=== PATIENT | female | born 1960 | race Two or more races ===

== ENCOUNTER 2017-03-28 20:05 | Emergency (ER) | payer OTHER ==
[~2017-03-28] VITALS: Ht 152.4 cm; Wt 81.6 kg
[~2017-03-28 20:05] MED LIST: ALBUAER3 IN; AMOX500C2; CAR3125T; OMEP20CA74 PO; WARF2TAB49 PO
[2017-03-28 20:18] VITALS: BP 104/71
== END 2017-03-29 03:20 | disposition left against medical advice (07) ==
LOC: EDBD → ER 20:16
DX: R07.89 Other chest pain (principal); Z53.21 Procedure and treatment not carried out due to patient leaving prior to being seen by health care provider
CPT/HCPCS: 71010; 93005

== ENCOUNTER 2019-07-22 10:42 | Emergency (ER) | payer MEDICAID ==
[~2019-07-22] VITALS: Ht 152.4 cm; Wt 63.5 kg
[~2019-07-22 10:42] MED LIST changes: -AMOX500C2; +CARV3.1240 PO; +DOXE50CA57 PO; +HYDR12.55 PO; +LEV25T PO; +METF-370 PO; +WARF1TAB36 PO
[2019-07-22 11:34] LABS: Urine Bacteria NONE SEEN /hpf (None Seen); Urine Blood Negative /uL (Negative); Urine Specific Gravity 1.007 (1.001-1.035); Urine WBC 4 /hpf (0 - 5)
[2019-07-22 14:50] VITALS: BP 133/84
== END 2019-07-22 15:03 | disposition home or self-care (01) ==
LOC: ER 10:42
DX: J44.9 Chronic obstructive pulmonary disease, unspecified (principal); I11.0 Hypertensive heart disease with heart failure; I50.9 Heart failure, unspecified; E11.9 Type 2 diabetes mellitus without complications; E78.5 Hyperlipidemia, unspecified; Z45.2 Encounter for adjustment and management of vascular access device; Z86.73 Personal history of transient ischemic attack (TIA), and cerebral infarction without residual deficits; Z90.49 Acquired absence of other specified parts of digestive tract; Z98.51 Tubal ligation status; Z90.710 Acquired absence of both cervix and uterus; Z79.899 Other long term (current) drug therapy
CPT/HCPCS: 81001

== ENCOUNTER 2019-08-14 09:54 | Inpatient (IN) | payer MEDICAID ==
[2019-08-14] VITALS (47 sets, daily range): BP systolic 84–131; BP diastolic 37–82
[~2019-08-14] VITALS: Ht 152.4 cm; Wt 70.7 kg
[2019-08-14] MEDS ORDERED: ALBUTEROL SULF 2.5 MG/0.5ML(0.5%) NEB SOLN NEB ONE (10:15)
[2019-08-14] MEDS ORDERED: IPRATROPIUM BROM 0.5 MG/2.5ML INH SOL NEB ONE ×2 (10:15)
[2019-08-14] MEDS ORDERED: ALBUTEROL SULF 2.5 MG/0.5ML(0.5%) NEB SOLN ONE (10:17)
[2019-08-14] MEDS ORDERED: ETOMIDATE (2MG/ML) 20ML VIAL IV ONE ×2 (10:30→11:00)
[2019-08-14] MEDS ORDERED: SUCCINYLCHOLINE CHLORIDE 20 MG/ML 10ML VIAL IV ONE ×2 (10:31→11:00)
[2019-08-14] MEDS ORDERED: MIDAZOLAM DRIP 50 mg/50mL 50 ML IV ONE (10:32)
[2019-08-14 10:43] LABS: Basophils # (auto) 0 10 ^3/uL (0-0.2); Basophils % (auto) 0.2 % (0.0-2.0); Eosinophils # (auto) 0.2 10 ^3/uL (0-0.8); Eosinophils % (auto) 1.1 % (0.0-7.0); Hematocrit 44.2 % (36.0-46.0); Hemoglobin 14.7 g/dL (12.2-16.2); Lymphocytes # (auto) 1.2 10 ^3/uL (0.4-5.4); Lymphocytes % (auto) 5.9 % (10.0-50.0); Mean Corpuscular Hgb Conc. 33.3 g/dL (32.0-36.0); Mean Corpuscular Volume 90.3 fL (80.0-100.0); Monocytes # (auto) 1.2 10 ^3/uL (0-1.3); Monocytes % (auto) 6.1 % (0.0-12.0); Neutrophils # (auto) 17.6 10 ^3/uL (1.6-8.6); Neutrophils % (auto) 86.7 % (37.0-80.0); Platelet Count (auto) 265 10^3/uL (140-450); Red Blood Cells 4.89 10^6/uL (4.0-5.20); Red Cell Distribution Width 16.1 % (11.8-14.3); White Blood Cell 20.4 10^3/uL (4.4-10.8)
[2019-08-14] MEDS: MIDAZOLAM DRIP 50 mg/50mL 50 ML IV SCH ×3 (10:43→21:40)
[2019-08-14] MEDS ORDERED: PIPERACILLIN-TAZOB 3.375GM 100 ML IV ONE ×2 (10:45→12:30)
[2019-08-14 11:00] LABS: Albumin 3.5 g/dL (3.4-5.0); Anion Gap 7 (5-15); Blood Urea Nitrogen 24 mg/dL (7-18); Carbon Dioxide 25 mmol/L (21-32); Chloride 108 mmol/L (98-107); Glucose 249 mg/dL (74-106); Potassium 4.1 mmol/L (3.5-5.1); Sodium 140 mmol/L (136-145)
[2019-08-14 11:06] LABS: Alanine Aminotransferase 34 U/L (13-56); Alkaline Phosphatase 113 U/L (45-117); Aspartate Aminotransferase 27 U/L (15-37); BUN/Creatinine Ratio 18.5; Bilirubin, Total 0.6 mg/dL (0.2-1.0); GFR African American 54 mL/min; GFR Non-African American 44 mL/min; Total Protein 8.6 g/dL (6.4-8.2)
[2019-08-14 11:14] LABS: INR 2.77 (0.9-1.15); Partial Thromboplastin Time 41.9 sec (23.64-32.05)
[2019-08-14] MEDS ORDERED: ACETAMINOPHEN 650 MG RECT SUPP PR ONE ×2 (11:20→11:45)
[2019-08-14 11:48] LABS: Lactic Acid w/Reflex 3.5 mmol/L (0.4-2.0)
[2019-08-14] MEDS ORDERED: FUROSEMIDE 20 MG/2 ML VIAL IV ONE (12:00)
[2019-08-14] MEDS ORDERED: AZITHROMYCIN 500MG/ 250ML 250 ML IV ONE (12:00)
[2019-08-14] MEDS: NOREPINEPHRINE 8 MG/250ML KIT 250 ML IV SCH (12:15)
[2019-08-14] MEDS ORDERED: NOREPINEPHRINE 8 MG/250ML KIT 250 ML IV ONE (12:21)
[2019-08-14] MEDS ORDERED: MORPHINE SULF INJ 2 MG/ML SYRINGE 1ML IV PRN (12:30)
[2019-08-14] MEDS ORDERED: DEXTROSE (50%) 50ML SYRG IV PRN (12:30)
[2019-08-14] MEDS ORDERED: ALBUTEROL SULF 2.5 MG/0.5ML(0.5%) NEB SOLN NEB PRN (12:30)
[2019-08-14] MEDS ORDERED: levoFLOXacin 500MG 100 ML IV ONE (12:30)
[2019-08-14] MEDS ORDERED: NITROGLYCERIN 0.4 MG SL TAB SL PRN (12:30)
[2019-08-14] MEDS ORDERED: SODIUM CHLORIDE 0.9% 1,000 ML IV ONE (12:45)
[2019-08-14] MEDS ORDERED: SODIUM CHLORIDE 0.9% 1,950 ML IV ONE (12:45)
--- NOTE | 2019-08-14 14:00 | NUR ---
Admit to ICU from ER on vent CHAPIS SERRANO admitted to ICU via gurney on lunchroom monitor, intubated and being bagged by Respiratory Therapist. Patient transfered to bed, connected to mechanical ventilator by therapist, JOSÉ at bedside. Patient connected to ICU monitoring, weighed by bedscale. NOTE: PT. IN RM. 112 ICU NEGATIVE AIRFLOW. PT. PLACED ON AIRBORNE PRECAUTIONS. PT. WAS TESTED FOR CORONAVIRUS IN ER, WAITING FOR RESULTS. PT. IS 1:1 ICU STATUS.
--- NOTE | 2019-08-14 14:20 | NUR ---
DR. HOLLOWAY Provider/Hospitalist at bedside.
[2019-08-14 14:29] LABS: Alcohol, Urine < 3.0 mg/dL (0-5); Amphetamine Screen, Urine NEGATIVE (NEGATIVE); Barbiturate Scree,Urine NEGATIVE (NEGATIVE); Benzodiazephine Screen, Urine NEGATIVE (NEGATIVE); Cannabinoid Screen, Urine NEGATIVE (NEGATIVE); Cocaine Screen, Urine NEGATIVE (NEGATIVE); Opiate Scree,Urine NEGATIVE (NEGATIVE); Phencyclidine Screen, Urine NEGATIVE (NEGATIVE)
[2019-08-14] MEDS: PROPOFOL 100 ML IV SCH (14:50)
--- NOTE | 2019-08-14 15:00 | NUR ---
Family updated on pt status Family of ABE SERRANOYLA updated on patient's status and condition. All questions and concerns addressed. verbalized understanding WITH INTERPERTER.
[2019-08-14] MEDS: LINEZOLID 600MG/300ML 300 ML IV SCH ×2 (15:59→21:39)
--- NOTE | 2019-08-14 16:45 | NUR ---
SBP DECREASED TO 90. RECHECKED BP AND DECREASED TO 88. INCREASED LEVOPHED GTT. TO 6 MCG. FROM 5 MCG. MONITORING BP.
--- NOTE | 2019-08-14 17:15 | NUR ---
SBP INCREASED TO THE 90'S. CONTINUING TO MONITOR BP.
[2019-08-14] MEDS: InsuLIN REG 1unit/0.01ml Soln (100units/ml) SC SCH ×2 (18:00→18:15)
[2019-08-14] MEDS: ACCU-CHEK COMFORT CURVE STRIP VI SCH (18:00)
--- NOTE | 2019-08-14 19:00 | NUR ---
AIR BORNE ISOLATION. BEING RULED OUT FOR SANCHEZ VIRUS. RESULTS DUE BACK FRIDAY.
[2019-08-14] MEDS: IPRATROPIUM BROM 0.5 MG/2.5ML INH SOL NEB SCH (19:40)
[2019-08-14] MEDS: ALBUTEROL SULF 2.5 MG/0.5ML(0.5%) NEB SOLN NEB SCH (19:40)
--- NOTE | 2019-08-14 19:40 | NUR ---
RT IS CHANGING OUT THE VENTILATOR
[2019-08-14] MEDS: PIPERACILLIN-TAZOB 3.375GM 100 ML IV SCH (20:00)
--- NOTE | 2019-08-14 20:00 | NUR ---
ADMITTED TODAY WITH EXTREME DYSPNEA THAT LED TO HER BEING INTUBATED IN ER. CURRENTLY IN NSR WITH OCCASIONAL PACS. NO FEVER. SBP BEING SUPPORTED WITH LEVOPHED THROUGH A CENTRAL LINE IN THE RIJ. SEDATION WITH VERSED THROUGH THE CENTRAL LINE. LUNGS CLEAR. NOTHING SUCTIONED THROUGH THE ETT OR ORALLY. RIGHT NARE NGT IS CLAMPED. RESIDUAL FROM THE NGT WAS 30CC OF GREEN LIQUID. NO BOWEL SOUNDS. ABDOMEN SOFT. ALL PULSES PALPABLE. ARMS ELEVATED ON PILLOWS. SCDS ON. SMITH DRAINING AN ADEQUATE/BORDERLINE AMOUNT OF CLEAR YELLOW LIQUID. REPOSITIONED TO HER BACK. PATIENT HAS NO BLINK, GAG OR COUGH. RECEIVING ANTIBIOTICS.
--- NOTE | 2019-08-14 22:00 | NUR ---
WOKE UP AND MOVED RIGHT HAND WHEN I SUCTIONED THE ETT. SUCTIONED A SMALL AMOUNT OF CREAMY SECRETIONS FROM THE ETT. ORAL CARE DONE, NO SECRETIONS. LUNGS CLEAR. ABDOMEN SOFT. ALL PULSES PALPABLE. PUPILS LARGER THIS TIME. ALL EXTREMITIES ARE WARM. PUT ZOSYN IV SEPERATELY. DECREASED THE VERSED AND LEVOPHED.
--- NOTE | 2019-08-14 23:00 | NUR ---
SBP REMAINING STABLE IN THE 120'S. DECREASED THE LEVOPHED PER PROTOCOL.
[2019-08-15] VITALS (98 sets, daily range): BP systolic 81–136; BP diastolic 25–76
--- NOTE | 2019-08-15 | NUR ---
SBP STABLE. ABLE TO WEAN OFF THE LEVOPHED. SINUS TACHYCARDIA 103. OCCASIONAL PAC. LIGHT COUGH REFLEX. NOTHING SUCTIONED FROM THE ETT. ORAL CARE DONE. REPOSITIONED SUPINE. NO FEVER.
[2019-08-15] MEDS: IPRATROPIUM BROM 0.5 MG/2.5ML INH SOL NEB SCH ×4 (00:47→18:45)
[2019-08-15] MEDS: ALBUTEROL SULF 2.5 MG/0.5ML(0.5%) NEB SOLN NEB SCH ×4 (00:47→18:45)
[2019-08-15] MEDS: MIDAZOLAM DRIP 50 mg/50mL 50 ML IV SCH ×5 (01:13→20:27)
[2019-08-15] MEDS: PIPERACILLIN-TAZOB 3.375GM 100 ML IV SCH ×4 (02:00→20:11)
--- NOTE | 2019-08-15 02:00 | NUR ---
REPOSITIONED TO LEFT. MILD, WEAK COUGH. LUNGS CLEAR. ORAL CARE DONE. SMITH DRAINING CLEAR YELLOW LIQUID. SINUS TACHYCARDIA. OCCASIONAL PAC.
--- NOTE | 2019-08-15 03:12 | NUR ---
AM LABS GIVEN
--- NOTE | 2019-08-15 04:00 | NUR ---
CHG BATH. PARTIAL LINEN CHANGE. PULLED UP IN BED. REPOSITIONED TO BACK. IV SHOWS NO REDNESS OR SWELLING. SBP STABLE. TEMP RISING TO 99.1 ORALLY. AXILLA CHECKED. TYLENOL GIVEN. AT 0501 THE HEART RATE ZOOMED BRIEFLY TO 151 AND THEN RETURNED TO 122. ATRIAL FIB. OCCASIONAL PVCS.
[2019-08-15 04:13] LABS: Basophils # (auto) 0 10 ^3/uL (0-0.2); Basophils % (auto) 0.3 % (0.0-2.0); Eosinophils # (auto) 0.4 10 ^3/uL (0-0.8); Eosinophils % (auto) 3.6 % (0.0-7.0); Hematocrit 36.1 % (36.0-46.0); Hemoglobin 12.6 g/dL (12.2-16.2); Lymphocytes # (auto) 1.3 10 ^3/uL (0.4-5.4); Lymphocytes % (auto) 11.9 % (10.0-50.0); Mean Corpuscular Hemoglobin 31.1 pg (28.0-32.0); Mean Corpuscular Hgb Conc. 34.8 g/dL (32.0-36.0); Mean Corpuscular Volume 89.5 fL (80.0-100.0); Monocytes % (auto) 9.1 % (0.0-12.0); Neutrophils % (auto) 75.1 % (37.0-80.0); Platelet Count (auto) 203 10^3/uL (140-450); Red Blood Cells 4.03 10^6/uL (4.0-5.20); White Blood Cell 10.7 10^3/uL (4.4-10.8)
[2019-08-15 04:29] LABS: Albumin 2.2 g/dL (3.4-5.0); Calcium 7.5 mg/dL (8.5-10.1); Potassium 3.1 mmol/L (3.5-5.1)
[2019-08-15 04:38] LABS: BUN/Creatinine Ratio 16.7; Bilirubin, Total 0.9 mg/dL (0.2-1.0); Total Protein 6.1 g/dL (6.4-8.2)
--- NOTE | 2019-08-15 05:18 | NUR ---
CALL PLACED TO HOSPITALIST TO REPORT THE HEART RATE AND RHYTHM.
[2019-08-15] MEDS ORDERED: METOPROLOL TARTRATE 1MG/1ML-5ML VIAL IV ONE (05:24)
--- NOTE | 2019-08-15 05:28 | NUR ---
RECEIVED AN ORDER FOR METOPROLOL Q 5 X 3 TO BREAK RHYTHM
[2019-08-15] MEDS: METOPROLOL TARTRATE 1MG/1ML-5ML VIAL IV SCH ×3 (05:30→06:00)
--- NOTE | 2019-08-15 05:30 | NUR ---
1ST DOSE OF METOPROLOL TOOK THE HEART RATE FROM 122 TO 98. OCCASIONAL PVC
--- NOTE | 2019-08-15 05:45 | NUR ---
SECOND DOSE OF METOPROLOL GIVEN FOR AN ATRIAL FIB RATE OF 96. HR HAS DROPPED TO 92. SBP 115.
[2019-08-15] MEDS: InsuLIN REG 1unit/0.01ml Soln (100units/ml) SC SCH ×4 (06:00→18:00)
[2019-08-15] MEDS: ACCU-CHEK COMFORT CURVE STRIP VI SCH ×4 (06:14→18:27)
--- NOTE | 2019-08-15 06:28 | NUR ---
LAST DOSE OF METOPROLOL DROPPED THE BLOOD PRESSURE SYSTOLIC TO 82. LEVOPHED RESTARTED. THE RHYTHM DID CONVERT TO NSR
--- NOTE | 2019-08-15 06:31 | NUR ---
NSR INTERMITTENT WITH ATRIAL FIB. RATE IS 97
--- NOTE | 2019-08-15 06:37 | NUR ---
SYSTOLIC 92 WITH LEVOPHED AT 2 MCG. HR REMAINS 97 WITH INTERMITTENT BEATS OF NSR.
--- NOTE | 2019-08-15 06:56 | NUR ---
CALL PUT IN TO HOSPITALIST TO REPORT THE POTASSIUM OF 3.1
--- NOTE | 2019-08-15 07:30 | NUR ---
REPORT RECEIVED UPDATED ON PATIENTS STATUS AND PLAN OF CARE. PPE'S FOR PERSONS UNDER INVESTIGATION REVIEWED WITH OFF GOING NURSE. PATIENT ORALLY INTUBATED, MECHANICALLY VENTILATED. MODERATELY SEDATED AND ON LOW DOSE LEVOPHED TO RIGHT IJ TLC, EVEN CHEST RISE AND FALL, NO DISTRESS NOTED. VSS. SEE FURTHER ORDERS. BED IN LOWEST POSITIONS, FALL PRECAUTIONS IN PLACE.
--- NOTE | 2019-08-15 09:05 | NUR ---
CHEST CT HELD AT THIS TIME CLARIFIED WITH SALES TRAINING COORDINATOR. CHEST CT HELD UNTIL ALL RESPIRATORY SWABS RESULTED DUE TO ISOLATION. CHARGE NURSE AND TAVERN OPERATOR AWARE. Addendum: 08/15/19 at 0932 by Stephanie Khan RN PERSON UNDER INVESTIGATION FOR CORONAVIRUS DISEASE.
[2019-08-15] MEDS: levoFLOXacin 500MG 100 ML IV SCH (10:14)
[2019-08-15] MEDS: LINEZOLID 600MG/300ML 300 ML IV SCH ×2 (10:14→22:14)
[2019-08-15] MEDS: ENOXAPARIN SOD 40 MG/0.4 ML SYRINGE SC SCH (10:15)
--- NOTE | 2019-08-15 10:40 | NUR ---
MD AT BEDSIDE MD AT BEDSIDE TO ASSESS PATIENT USING APPROPRIATE PPE PER PROTOCOL. UPDATED ON PLAN OF CARE. SEE NEW ORDERS. Addendum: 08/15/19 at 1120 by Stephanie Khan RN stated he shazia Chu on patients status. Addendum: 08/15/19 at 1839 by Stephanie Khan RN AWARE OF INTERMITTENT EPISODES OF ST/ST- AFIB RVR. AWARE OF EPISODE FOR NOC NURSE WITH TX GIVEN ALONG WITH HYPOTENSION NOTED. NO NEW ORDERS AT THIS TIME.
[2019-08-15] MEDS ORDERED: POTASSIUM CHLORIDE 40 MEQ, LIDOCAINE 1% (LOCAL ANESTH.) 4 ML in SODIUM CHL 0.9% 100 ML IV ONE (11:00)
[2019-08-15] MEDS ORDERED: FAMOTIDINE (10MG/ML) 2ML VL IV ONE (11:00)
[2019-08-15] MEDS: PROPOFOL 100 ML IV SCH (12:00)
[2019-08-15] MEDS: NOREPINEPHRINE 8 MG/250ML KIT 250 ML IV SCH (12:45)
--- NOTE | 2019-08-15 12:50 | NUR ---
WOUND CARE NOTE: PATIENT RECENTLY ADMITTED TO [facility] WITH DIAGNOSIS OF ACUTE RESPIRATORY FAILURE. SHE IS INTUBATED, SEDATED IN ICU, ON AIRBORNE ISOLATION. PER BEDSIDE NURSE, SHE IS WOUND FREE AT THIS TIME. SKIN/WOUND CARE PLAN IN PLACE. ASSESSED GENEVA SCORE AT 10,CURRENTLY. PATIENT WOULD BENEFIT FROM BID/PRN APPLICATION WITH MOISTURE BARRIER CREAM, OPTIFOAM GENTLE SACRAL DRESSING PREVENTATIVE, FREQUENT TURN SCHEDULE Q2 HOURS, PRN CONDITION PERMITS, WITH PRESSURE REDISTRIBUTION USING PILLOWS/WEDGES, DIETARY CONSULT, SKIN/WOUND CARE PLAN, CONTINUED MONITORING BY WOUND CARE TEAM.
--- NOTE | 2019-08-15 13:02 | NUR ---
Attempt to reach family Attempt to contact SonVlad to give the latest update from CDC and resources available for family No answer. [place] [facility]
--- NOTE | 2019-08-15 13:05 | NUR ---
WOUND CARE CONSULT PLACED PER PROTOCOL DUE TO INTUBATION/SEDATION. ROSALINE ALMARAZ NOTIFIED OF CONSULT. INFORMED PATIENT SACRUM IS CURRENTLY INTACT. SMALL AMOUNTS OF SKIN TEARS NOTED TO BILATERAL GROIN FOLDS. ZGAURD APPLIED TO AREA OF CONCERN. OPTIFOAM IN PLACE PREVENTATIVE.
--- NOTE | 2019-08-15 13:09 | NUR ---
FAMILY UPDATE SONVI CALLED BACK TO OBTAIN UPDATE. UPDATE PROVIDED. EDUCATED ON CDC RECOMMENDATIONS PER ADMINISTRATION. SON EDUCATED THAT A PRECAUTION SELF ISOLATION SHOULD BE FOLLOWED FOR ANY FAMILY MEMBERS THAT HAVE BEEN IN CONTACT WITH PATIENT AT THIS POINT. SON ALSO NOTIFIED IF ANY S/S OF ILLNESS ARE NOTED CDC CAN BE CONTACTED FOR FURTHER TESTING WE ARE NOT A TESTING CENTER AND CURRENTLY NOT PROVIDING ASSISTANCE AT THIS TIME. SON STATING FAMILY IS NOT HAVING ANY SYMPTOMS AT THIS TIME. NUMBER REFUSED BY SON AND STATED HE WILL CALL IF NEEDED. IMPORTANCE OF HAND HYGIENE PROVIDED, SON VERBALIZED UNDERSTANDING.
[2019-08-15] MEDS ORDERED: Glucerna 1.2 Cal 1Liter BOTTLE GT SCH (13:15)
--- NOTE | 2019-08-15 13:21 | NUR ---
ASSISTANT PORTFOLIO MANAGER AT BEDSIDE. NEW ORDERS IN PLACE. Addendum: 08/15/19 at 1322 by Stephanie Khan RN VERIFIED WITH ASSISTANT PORTFOLIO MANAGER. NO CHANGE IN ABX AT THIS TIME.
--- NOTE | 2019-08-15 13:22 | NUR ---
NUTRITION ASSESSMENT NOTES Please refer to link notes of nutrition screen form filed under the intervention section of the plan of care for further details. Est. Energy Needs: [id number] kcal (20-22 kcal/kg BW). Est. Protein Needs: 64-80 gms/day (1.2-1.5 gms/kg Adj.BW). Will continue to monitor pertinent labs and reassess nutrient need prn Addendum: 08/15/19 at [address] Amended: Links added.
--- NOTE | 2019-08-15 13:28 | NUR ---
ECHO PENDING PER MILENA FRUIT PICKER MACHINE OPERATOR. ECHO TO BE HELD UNTIL COVID-19 VERIFIED PER TRISTEN.
[2019-08-15] MEDS ORDERED: LEVO25TA6 PO (15:44)
[2019-08-15] MEDS ORDERED: FURO40TA4 PO (15:44)
[2019-08-15] MEDS ORDERED: PRAV20TA3 PO (15:44)
[2019-08-15] MEDS ORDERED: POTA1TAB61 PO (15:44)
[2019-08-15] MEDS: fentaNYL Drip 2500mCg/250mlNS 250 ML IV SCH (16:00)
--- NOTE | 2019-08-15 20:10 | NUR ---
Opening Shift Note Assumed care of patient, intubated, sedated. Breathing on Ventilator, AC mode via ET tube, even and synchronized, No S/S of distress/SOB or pain. TLC at right IJ, CDI site, infusing sedative and Levophed. 20G IV at right FA, CDI site, infusing NS and antibiotic. Moffat sump at right nare at jaylon 56cm, positive position. NGT residual with greenish bile 5ml and ~300ml of air. Polo's catheter hung to gravity with cloudy straw urine. SCD on both legs. Bed in low position, fall and safety precaution in place, all alarms are audible. No visitor at this time, will continue to monitor for changes Q1hr and PRN.
--- NOTE | 2019-08-15 20:25 | NUR ---
Condition update Pt with moderate sedation, hypoactive cough upon mouth care and suction. Moderate saliva with pink tinged at the back of the throat. Tiny amount of white sputum. Re-positioned to prevent pressure ulcer. HR increased to 120's upon stimulation. BP better after Levophed taper up to 5mcg/min. Oliguria. Continue monitoring.
--- NOTE | 2019-08-15 20:45 | NUR ---
TF started Glucerna started at this time per MD order. TF initiated at 10ml/hr, will continue to monitor and titrate slowly.
[2019-08-16] VITALS (93 sets, daily range): BP systolic 75–137; BP diastolic 29–77
--- NOTE | 2019-08-16 | NUR ---
Condition update/ TF residual Pt's condition stable with deep sedation. HR decreased and responded to increasing of Fentanyl drip, will taper up slowly on pain killer for comfort and taper down sedative. BP controlled in normal range with Levophed 4.5mcg. Noted TF residual of 50ml, some digested, returned the residual and decreased TF from 10ml/hr to 5ml/hr, will continue to monitor residual. Continue care. Addendum: 08/16/19 at 0316 by Argelia Hitchcock RN Dysrhythmia Noted EKG showed accelerated JR earlier, EKG 12 leads obtained from bedside monitor at this time. EKG converted to Afib rate 90'sto low 100's at the time 12-leads obtained. See strips in chart.
[2019-08-16] MEDS: IPRATROPIUM BROM 0.5 MG/2.5ML INH SOL NEB SCH ×4 (00:19→19:19)
[2019-08-16] MEDS: ALBUTEROL SULF 2.5 MG/0.5ML(0.5%) NEB SOLN NEB SCH ×4 (00:19→19:19)
[2019-08-16] MEDS: ACCU-CHEK COMFORT CURVE STRIP VI SCH ×4 (00:39→17:44)
[2019-08-16] MEDS: InsuLIN REG 1unit/0.01ml Soln (100units/ml) SC SCH ×4 (00:54→17:44)
--- NOTE | 2019-08-16 02:15 | NUR ---
Condition update Pt's condition and v/s stable. HR and BP controlled in range with sedative, pain killer and Levophed. No fever. Hypoactive cough reflex. Continue monitoring.
[2019-08-16] MEDS: PIPERACILLIN-TAZOB 3.375GM 100 ML IV SCH ×4 (02:18→20:36)
--- NOTE | 2019-08-16 03:30 | NUR ---
Condition update/ TF Pt's condition and v/s stable. Blood drawn for AM Lab done. NGT residual noted 10ml, and a lot of air. Continue TF at 5ml/hr. Continue care.
[2019-08-16] MEDS: MIDAZOLAM DRIP 50 mg/50mL 50 ML IV SCH (03:36)
[2019-08-16] MEDS: NOREPINEPHRINE 8 MG/250ML KIT 250 ML IV SCH (03:37)
--- NOTE | 2019-08-16 04:18 | NUR ---
Patient bathe/linen change Patient given complete bath with CHG wipes. Skin integrity assessed for any changes, no new changes. Blister at under TLC Tegaderm d/s remained intact. Sacrum intact, hyperpigmentation, z-guard applied, Optifoam covered to prevent pressure ulcer. Left elbow and left hand fingers mild contracted, ROM for Pt done. Abdominal fold with small skin tear and red line, z-guard applied after cleaned with CHG wipe, pillow case put between skin fold. Polo's catheter care done, Polo's catheter chemical milling processor changed. Z-guard applied to both groins. NGT tape changed, jaylon at right nare 56 cms. Complete linens changed. Patient repositioned to prevent pressure ulcer. Mouth care done. Continue care.
[2019-08-16 04:26] LABS: Basophils # (auto) 0 10 ^3/uL (0-0.2); Basophils % (auto) 0.3 % (0.0-2.0); Eosinophils # (auto) 0.4 10 ^3/uL (0-0.8); Eosinophils % (auto) 3.9 % (0.0-7.0); Hematocrit 38.4 % (36.0-46.0); Lymphocytes # (auto) 1.9 10 ^3/uL (0.4-5.4); Lymphocytes % (auto) 19.1 % (10.0-50.0); Mean Corpuscular Hemoglobin 30.7 pg (28.0-32.0); Mean Corpuscular Hgb Conc. 33.9 g/dL (32.0-36.0); Mean Corpuscular Volume 90.5 fL (80.0-100.0); Monocytes # (auto) 1.2 10 ^3/uL (0-1.3); Monocytes % (auto) 12.1 % (0.0-12.0); Neutrophils # (auto) 6.5 10 ^3/uL (1.6-8.6); Neutrophils % (auto) 64.6 % (37.0-80.0); Nucleated Red Blood Cells % 0.1 %; Platelet Count (auto) 248 10^3/uL (140-450); Red Blood Cells 4.24 10^6/uL (4.0-5.20); Red Cell Distribution Width 15.8 % (11.8-14.3); White Blood Cell 10.1 10^3/uL (4.4-10.8)
[2019-08-16 04:46] LABS: Albumin 2.4 g/dL (3.4-5.0); Calcium 8.1 mg/dL (8.5-10.1); Potassium 3.8 mmol/L (3.5-5.1)
[2019-08-16 04:52] LABS: BUN/Creatinine Ratio 11.9; Bilirubin, Total 0.6 mg/dL (0.2-1.0); Total Protein 6.4 g/dL (6.4-8.2)
--- NOTE | 2019-08-16 06:20 | NUR ---
Summary HR and BP more controlled and in normal range toward the end of the shift. EKG converted from Afib to SR at 06.13am. HR now in the 80's, SBP 120's. Levophed IV drip at 4.5mcg/min. Breathing even and synchronized with ventilator, deep sedation, decreased sedative slowly, see info in the IV spreadsheet. Scant sputum, hypoactive cough. Absent bowel sounds, unable to tolerated TF at 10ml/hr. TF at 5ml/hr now. Urine cloudy with sediments, straw color, 570ml/ 12hr. No BM. No fever. Will continue monitor and endorse care to day shift.
--- NOTE | 2019-08-16 07:09 | NUR ---
Respiratory note: RECEIVED PATIENT ON V17 V200 VENT ORALLY INTUBATED WITH AN 8.0 ETT. THERE IS A NGT IN THE RIGHT NARE, AND A TRIPLE LUMEN CENTRAL LINE IS PLACED IN THE RIGHT IJ. UNABLE TO ASSESS PATIENT AT BEDSIDE AT THIS TIME PROPER PPE IS NOT AVAILABLE TO ALLOW MYSELF SAFE/PROTECTED ENTRANCE INTO PATIENTS ROOM. ALL VALUES NOTED IN VENT ASSESSMENT WERE VISUALIZED FROM THE DOOR. WILL ASSESS AT BEDSIDE WHEN EQUIPMENT IS AVAILABLE TO ALLOW SAFE/PROTECTED ENTRANCE.
--- NOTE | 2019-08-16 07:40 | NUR ---
OPENING SHIFT NOTE REPORT RECEIVED FROM SUBPOENA SERVER RN, MORNING ASSESSMENT PERFORMED AND DOCUMENTED. 58 YEAR OLD FEMALE, MECHANICALLY VENTILATED AND ON AIRBORNE ISOLATION, AWAITING COVID 19 RESULTS - ISOLATION PRECAUTIONS IN PLACE PER CDC RECOMMENDATION AND HOSPITAL POLICY. PHYSICAL ASSESSMENT PERFORMED AND DOCUMENTED, NO DISTRESS NOTED, RESPIRATIONS EVEN AND UNLABORED, VSS AND DOCUMENTED. GT FEEDING RESUMED, PLACEMENT VERIFIED VIA AUSCULTATION AND CXR WILL BE OBTAINED - RECEIVED AT 5 MLS/HR WITH ZERO RESIDUAL INCREASED RATE TO 10 MLS/HR WILL MONITOR FOR TOLERANCE. SMITH CATHETER DRAINING CLOUDY/SEDIMENT STRAW COLOR URINE TO GRAVITY. MORNING CARE PERFORMED, COMFORT MEASURES APPLIED. FALL AND SAFETY PRECAUTIONS IN PLACE. WILL CONTINUE TO MONITOR.
[2019-08-16] MEDS: levoFLOXacin 500MG 100 ML IV SCH (08:01)
--- NOTE | 2019-08-16 08:05 | NUR ---
CONTACT PHARMACY REGARDING MED ZOSYN NOT IN UNIT, NOTIFIED PHARMACY AND MADE AWARE, AWAITING RECEIPT.
[2019-08-16] MEDS: FAMOTIDINE (10MG/ML) 2ML VL IV SCH (08:36)
[2019-08-16] MEDS: ENOXAPARIN SOD 40 MG/0.4 ML SYRINGE SC SCH (08:36)
[2019-08-16] MEDS: LINEZOLID 600MG/300ML 300 ML IV SCH ×2 (08:37→22:10)
--- NOTE | 2019-08-16 09:19 | NUR ---
SEDATION VACATION TITRATING APPROPRIATELY TO KEEP PATIENT AT RASS -3. NO SEDATION VACATION WILL TAKE PLACE TODAY UNTIL COVID 19 RESULTS AVAILABLE AND ORDERED BY . Addendum: 08/16/19 at 0923 by Lisa Lake RN Amended: Links added.
[2019-08-16] MEDS: PROPOFOL 100 ML IV SCH (10:02)
--- NOTE | 2019-08-16 11:50 | NUR ---
CALL RECEIVED FROM LAB ALETHEA FROM LAB NOTIFIED THIS NURSE THAT H1N1 WAS NOT COLLECTED CORRECTLY, IT WAS COLLECTED THROUGH BLOOD/SERUM AND NEEDS TO BE COLLECTED WITH SPECIAL SWAB. ALETHEA FURTHER STATED THAT "THIS IS A TIME SENSITIVE COLLECTION AND MUST BE COLLECTED WITHIN 20 MINUTES FROM WHEN THE LAB SENDS SWAB TO NURSE COLLECTING". ALETHEA WAS NOTIFIED TO SEND SWAB AND COLLECTION WILL BE COMPLETED.
--- NOTE | 2019-08-16 11:50 | NUR ---
FEEDING HELD RESIDUAL REASSESSMENT MEASURED OVER 80 MLS OF GLUCERNA RUNNING AT 10 MLS/HR. FEEDING HELD AT THIS TIME, WILL REASSESS - MD WILL BE NOTIFIED.
--- NOTE | 2019-08-16 12:05 | NUR ---
HOSPITALIST AT BEDSIDE/H1N1 SWAB SENT DR NGUYEN UPDATED ON PATIENT'S STATUS, ECG READINGS THROUGHOUT SHIFT AND TUBE DRAW HELPER, PENDING RESULTS, DRIPS AND NOTED RESIDUAL FROM NGT FEEDINGS. ORDERS TO PLACE NGT TO LIS RECEIVED SINCE PATIENT NOT TOLERATING FEEDINGS WELL "OK TO NOT FOLLOW PROTOCOL WHEN TITRATING VASOPRESSOR", DUE TO PATIENT'S SENSITIVITY AND DOES NOT TOLERATE TITRATING LEVOPHED BY 2 MCG/MIN (SBP 70'S - 120'S). NGT CONNECTED TO LIS - WILL CONTINUE TO MONITOR. H1N1 SWAB SENT TO LAB.
[2019-08-16] MEDS: fentaNYL Drip 2500mCg/250mlNS 250 ML IV SCH (14:38)
--- NOTE | 2019-08-16 16:00 | NUR ---
PULMONOLOGY AT BEDSIDE DR HOLLOWAY UPDATED ON PATIENT'S STATUS, DR HOLLOWAY ASSESSED PATIENT AT BEDSIDE, NO ORDERS RECEIVED AT THIS TIME, AWAITING COVID 19 RESULTS FOR NEXT PLAN OF CARE.
--- NOTE | 2019-08-16 19:22 | NUR ---
END OF SHIFT NOTE PATIENT MECHANICALLY VENTILATED, SEDATED, NO DISTRESS NOTED, RESPIRATIONS EVEN AND UNLABORED, VSS AND DOCUMENTED. ENDORSED CONTINUED CARE TO PHYSICIAN PRACTICE COORDINATOR RN.
--- NOTE | 2019-08-16 19:25 | NUR ---
REPORT RECEIVED, ASSUMED CARE.
[2019-08-17] VITALS (91 sets, daily range): BP systolic 89–129; BP diastolic 39–81
[2019-08-17] MEDS: ACCU-CHEK COMFORT CURVE STRIP VI SCH ×5 (00:08→23:57)
[2019-08-17] MEDS: InsuLIN REG 1unit/0.01ml Soln (100units/ml) SC SCH ×4 (00:09→17:41)
[2019-08-17] MEDS: IPRATROPIUM BROM 0.5 MG/2.5ML INH SOL NEB SCH ×5 (00:47→23:55)
[2019-08-17] MEDS: ALBUTEROL SULF 2.5 MG/0.5ML(0.5%) NEB SOLN NEB SCH ×5 (00:47→23:55)
[2019-08-17] MEDS: PIPERACILLIN-TAZOB 3.375GM 100 ML IV SCH ×4 (02:09→20:09)
[2019-08-17 04:16] LABS: Basophils # (auto) 0 10 ^3/uL (0-0.2); Basophils % (auto) 0.6 % (0.0-2.0); Eosinophils # (auto) 0.3 10 ^3/uL (0-0.8); Eosinophils % (auto) 3.3 % (0.0-7.0); Hematocrit 38.6 % (36.0-46.0); Hemoglobin 12.9 g/dL (12.2-16.2); Lymphocytes # (auto) 1.1 10 ^3/uL (0.4-5.4); Lymphocytes % (auto) 13.5 % (10.0-50.0); Mean Corpuscular Hemoglobin 30.1 pg (28.0-32.0); Mean Corpuscular Hgb Conc. 33.4 g/dL (32.0-36.0); Mean Corpuscular Volume 89.9 fL (80.0-100.0); Monocytes # (auto) 0.8 10 ^3/uL (0-1.3); Monocytes % (auto) 9.5 % (0.0-12.0); Neutrophils # (auto) 6.2 10 ^3/uL (1.6-8.6); Neutrophils % (auto) 73.1 % (37.0-80.0); Platelet Count (auto) 242 10^3/uL (140-450); Red Blood Cells 4.29 10^6/uL (4.0-5.20); Red Cell Distribution Width 15.3 % (11.8-14.3); White Blood Cell 8.4 10^3/uL (4.4-10.8)
[2019-08-17 04:40] LABS: Albumin 2.2 g/dL (3.4-5.0); Calcium 8.3 mg/dL (8.5-10.1)
[2019-08-17 04:43] LABS: BUN/Creatinine Ratio 9.8
[2019-08-17 04:51] LABS: Bilirubin, Total 0.8 mg/dL (0.2-1.0); Total Protein 6.8 g/dL (6.4-8.2)
[2019-08-17] MEDS: MIDAZOLAM DRIP 50 mg/50mL 50 ML IV SCH (06:25)
--- NOTE | 2019-08-17 07:09 | NUR ---
Respiratory note: RECEIVED PATIENT ON V17 V200 VENT ORALLY INTUBATED WITH AN 8.0 ETT SECURED VIA ANTONIO AT THE 20CM MARKING AT THE LIP, AND MECHANICALLY VENTILATED WITH THE CHARTED SETTINGS. SPO2 100%, LUNG SOUNDS COARSE WHEEZES IN APICES, DIM IN THE BASES, NO SECRETIONS WHEN SUCTIONED. SKIN IS COOL/DRY TO THE TOUCH AND IS INTACT NEAR ANTONIO SITE. THERE IS A NGT IN THE RIGHT NARE AND IS SECURED TO THE NOSE, A TRIPLE LUMEN CENTRAL LINE IS PLACED IN THE RIGHT IJ. THERE ARE TWO BLISTERS NOTED JUST BELOW THE CENTRAL LINE DRESSING. NON PITTING EDEMA NOTED IN BILATERAL UPPER EXTREMITIES, NO EDEMA NOTED IN LOWER EXTREMITIES. NO NEW AM CXR TO ASSESS AT THIS TIME. PATIENT IS UNRESPONSIVE TO BOTH VERBAL/TACTILE STIMULI AND IS SEDATED ON VERSED AND PROPOFOL DRIPS. SHE IS RESTING COMFORTABLY AND TOLERATING VENT WELL, NO CHANGES MADE. VENT PLUGGED INTO RED OUTLET AND ALL ALARMS ARE SET AND AUDIBLE. WILL CONTINUE TO ASSESS PATIENT WELL VENTILATOR FUNCTION. MED-NEB RUN INLINE VIA [employer]ubbleball.
--- NOTE | 2019-08-17 07:30 | NUR ---
ASSESS- PT. LYING IN BED ON VENT SIZE # 8.0 ET, 20 AT THE LIP, AC-12, TV-450, PEEP-7, FIO2-30%. LUNGS CLEAR NATHANIEL. INSPIRATORY AND EXPIRATORY, DIMINISHED THROUGHOUT. PT. HAS GAG/COUGH REFLEX. PUPILS 3 AND SLUGGISH NATHANIEL. NO MOVEMENT OF EXTREMITIES SEEN. ON VERSED GTT. AT 4MG./HR. AND PROPOFOL GTT. AT 5 MCG. RESPONDS TO PAINFUL/TACTILE STIMULI. LEVOPHED GTT. AT 3 MCG. SBP ONE TEENS. NGT RT. NARE TO LIS WITH BILE DRAINAGE. ABD. SOFT, FLAT. BOWEL SOUNDS HYPOACTIVE ALL FOUR QUADRANTS. F/C TO GRAVITY WITH YELLOW URINE WITH SEDIMENT. RADIAL PULSES WEAK, PALPABLE NATHANIEL. DORSALIS PEDAL PULSES WEAK, PALPABLE NATHANIEL. PT. IS IN A-FIB, HR ONE TEENS. GROIN AREA MACERATED-ERYTHEMA, NO OPENING. ABD. FOLDS WITH ERYTHEMA, NO OPENING. RECTAL PROBE IN PLACE, TEMP 99.9. ICE PACKS NATHANIEL. AXILLA IN PLACE. TLC RT. IJ INTACT. SCD'S NATHANIEL. LE.
--- NOTE | 2019-08-17 09:00 | NUR ---
SBP ONE TEENS. TITRATING LEVOPHED DOWN 0.5 MCG. AT A TIME. MONITORING BP.
[2019-08-17] MEDS: levoFLOXacin 500MG 100 ML IV SCH (09:23)
[2019-08-17] MEDS: ENOXAPARIN SOD 40 MG/0.4 ML SYRINGE SC SCH (09:23)
[2019-08-17] MEDS: FAMOTIDINE (10MG/ML) 2ML VL IV SCH (09:24)
--- NOTE | 2019-08-17 09:55 | NUR ---
INFORMED BY ROSALINE AGUILLON DIRECTOR OF ICU THAT PT. IS NEGATIVE FOR COVID-19. ISOLATION REMOVED.
--- NOTE | 2019-08-17 10:00 | NUR ---
NOTIFIED DR. HOLLOWAY OF PT. BEING NEGATIVE FOR COVID-19. ORDER TO RECEIVED TO TITRATE PT. OFF SEDATION FOR CPAP TRIAL TODAY. CT CHEST WITHOUT CONTRAST CX. WILL NOTIFY RT.
--- NOTE | 2019-08-17 10:05 | NUR ---
PROPOFOL GTT. TURNED OFF, WAS AT 5MCG.
[2019-08-17] MEDS: LINEZOLID 600MG/300ML 300 ML IV SCH ×2 (10:24→21:49)
--- NOTE | 2019-08-17 11:43 | NUR ---
TITRATED LEVOPHED GTT. OFF. SBP 90'S-100'S. MONITORING BP.
--- NOTE | 2019-08-17 11:54 | NUR ---
assessment Patient is a 58 year old female who was on a vent in ICU. Per patients mey Chu prior to admission patient lived home with her family and functioned with family assistance. Per Vlad patient has a wheelchair for home use. Per Vlad patient was brought to ER for SOB and a cough and was admitted. I informed Vlad patients post discharge needs to be determined after extubation and prior to discharge. Vlad verbalized understanding. Addendum: 08/18/19 at 1157 by Dasha ALEMAN Amended: Links added.
[2019-08-17] MEDS: PROPOFOL 100 ML IV SCH (12:01)
--- NOTE | 2019-08-17 12:20 | NUR ---
VERSED GTT. OFF TITRATED OFF. PT. HAS NATHANIEL. HAND MITTENS ON TO PREVENT PULLING OF TUBES WHEN PT. AWAKENS.
--- NOTE | 2019-08-17 12:35 | NUR ---
DR. NGUYEN Provider/Hospitalist at bedside. GAVE UPDATE ON PT. DR. NGUYEN SAID HE WILL CALL SON AND GIVE UPDATE ON PT.
[2019-08-17] MEDS: fentaNYL Drip 2500mCg/250mlNS 250 ML IV SCH (12:42)
[2019-08-17] MEDS: NOREPINEPHRINE 8 MG/250ML KIT 250 ML IV SCH (12:42)
--- NOTE | 2019-08-17 13:03 | NUR ---
MADELYN SENIOR APPLICATIONS ARCHITECT Provider/Hospitalist at bedside FOR CONSULT. GAVE UPDATE ON PT.
[2019-08-17] MEDS ORDERED: AMIODARONE HCL 150 MG in D5W 5% 100 ML IV ONE (14:00)
--- NOTE | 2019-08-17 14:40 | NUR ---
TECH AT BS FOR 2D ECHO.
[2019-08-17 14:51] LABS: INR 1.97 (0.9-1.15); Partial Thromboplastin Time 44.7 sec (23.64-32.05)
--- NOTE | 2019-08-17 15:30 | NUR ---
DR. HOLLOWAY Provider/Hospitalist at bedside. GAVE UPDATE ON PT.
--- NOTE | 2019-08-17 16:50 | NUR ---
CHECKED FOR COUMADIN IN [facility], NOT THERE. CALLED PHARMACY AND SAID TECH IS DELIVERING MEDS.
[2019-08-17] MEDS ORDERED: WARFARIN SODIUM 2 MG TAB PO ONE (17:00)
--- NOTE | 2019-08-17 17:15 | NUR ---
PT. REMAINS OFF SEDATION. EYES CLOSED, DOES NOT OPEN SPONTANEOUSLY OR TO STIMULI. PT. HAS GAG/COUGH REFLEX. RESPONDS TO PAINFUL/TACTILE STIMULI. NO MOVEMENT OF EXTREMITIES SEEN.
--- NOTE | 2019-08-17 17:30 | NUR ---
STILL HAVE NOT RECEIVED COUMADIN FOR 1700 DOSE TODAY. NOTIFIED PHARMACY AGAIN.
--- NOTE | 2019-08-17 19:00 | NUR ---
Report received from ROSALINE Stokes. Will continue with POC; and, will continue to monitor VS & clinical status.
[2019-08-18] VITALS (105 sets, daily range): BP systolic 55–175; BP diastolic 34–89
--- NOTE | 2019-08-18 | NUR ---
Accucheck 176 mg/dl. Patient covered with Regular Insulin 3 units SQ left deltoid per Sliding Scale.
[2019-08-18] MEDS: InsuLIN REG 1unit/0.01ml Soln (100units/ml) SC SCH ×4 (00:04→17:44)
[2019-08-18] MEDS: PIPERACILLIN-TAZOB 3.375GM 100 ML IV SCH ×4 (01:59→20:41)
--- NOTE | 2019-08-18 03:25 | NUR ---
Labour Market Economist at bedside. Blood collected by casualty underwriter from [facility] and specimens given to Labour Market Economist; and, specimens sent to lab.
--- NOTE | 2019-08-18 04:25 | NUR ---
Complete bed bath with linen change given.
[2019-08-18 04:58] LABS: Basophils # (auto) 0 10 ^3/uL (0-0.2); Basophils % (auto) 0.5 % (0.0-2.0); Eosinophils # (auto) 0.1 10 ^3/uL (0-0.8); Eosinophils % (auto) 2.4 % (0.0-7.0); Hematocrit 35.3 % (36.0-46.0); Hemoglobin 12.1 g/dL (12.2-16.2); Lymphocytes # (auto) 1.1 10 ^3/uL (0.4-5.4); Lymphocytes % (auto) 18.6 % (10.0-50.0); Mean Corpuscular Hemoglobin 30.6 pg (28.0-32.0); Mean Corpuscular Hgb Conc. 34.2 g/dL (32.0-36.0); Mean Corpuscular Volume 89.6 fL (80.0-100.0); Monocytes # (auto) 0.5 10 ^3/uL (0-1.3); Neutrophils # (auto) 4.1 10 ^3/uL (1.6-8.6); Neutrophils % (auto) 69.5 % (37.0-80.0); Platelet Count (auto) 226 10^3/uL (140-450); Red Blood Cells 3.94 10^6/uL (4.0-5.20); Red Cell Distribution Width 15.5 % (11.8-14.3); White Blood Cell 5.9 10^3/uL (4.4-10.8)
[2019-08-18 05:09] LABS: INR 1.79 (0.9-1.15)
--- NOTE | 2019-08-18 05:13 | NUR ---
PCXR done at bedside.
[2019-08-18 05:15] LABS: Albumin 2.1 g/dL (3.4-5.0); BUN/Creatinine Ratio 10.6; Calcium 8.1 mg/dL (8.5-10.1); Potassium 3.7 mmol/L (3.5-5.1)
[2019-08-18 05:19] LABS: Bilirubin, Total 0.6 mg/dL (0.2-1.0); Total Protein 6.5 g/dL (6.4-8.2)
[2019-08-18] MEDS: IPRATROPIUM BROM 0.5 MG/2.5ML INH SOL NEB SCH ×3 (05:39→19:02)
--- NOTE | 2019-08-18 05:40 | NUR ---
Accucheck 113 mg/dl. No coverage indicated at this time.
[2019-08-18] MEDS: ALBUTEROL SULF 2.5 MG/0.5ML(0.5%) NEB SOLN NEB SCH ×3 (07:12→19:02)
--- NOTE | 2019-08-18 07:50 | NUR ---
ASSESS- PT. LYING IN BED ON VENT SIZE# 8.0, 20 AT THE LIP, AC-12, TV-450, PEEP-7, FI02-30%. LUNGS WITH RALES NATHANIEL. AND RHONCHI NATHANIEL. INSPIRATORY AND EXPIRATORY. PT. HAS GAG/COUGH REFLEX. PT. IS OFF SEDATION. OPENS EYES SPONTANEOUSLY, NO TRACKING. PUPILS 2 AND SLUGGISH NATHANIEL. SOME MOVEMENT OF RT. FT. SEEN. DOES NOT FOLLOW ANY COMMANDS. NGT RT. NARE TO LIS WITH SM. AMOUNT BILE DRAINAGE. ABD. SOFT, FLAT. BOWEL SOUNDS HYPOACTIVE ALL FOUR QUADRANTS. F/C TO GRAVITY WITH YELLOW URINE WITH SEDIMENT. RADIAL PULSES WEAK, PALPABLE NATHANIEL. DORSALIS PEDAL PULSES WEAK, PALPABLE NATHANIEL. SCD'S NATHANILE. LE. TLC RT. IJ INTACT WITH DSG. D/I. BLISTER NOT OPEN TIMES 2 TO RT. SIDE OF NECK. ERYTHEMA TO ABD. FOLDS AND GROIN AREA OPEN TO AIR. RECTAL PROBE IN PLACE. NO VASOPRESSORS.
[2019-08-18] MEDS: ACCU-CHEK COMFORT CURVE STRIP VI SCH ×3 (08:00→17:44)
[2019-08-18] MEDS: FAMOTIDINE (10MG/ML) 2ML VL IV SCH (09:34)
[2019-08-18] MEDS: ENOXAPARIN SOD 40 MG/0.4 ML SYRINGE SC SCH (09:34)
[2019-08-18] MEDS: levoFLOXacin 500MG 100 ML IV SCH (09:34)
[2019-08-18] MEDS ORDERED: AMIODARONE HCL 200 MG TAB PO SCH (10:00)
--- NOTE | 2019-08-18 10:15 | NUR ---
RR INCREASED TO MID 30'S TO 40. HR ONE TWENTIES, ST. PT. IS CALM, NO RESTLESSNESS OR AGITATION NOTED, EYES OPEN AT TIMES, NO TRACKING. PT. IS OFF SEDATION. RESTARTED FENTANYL GTT. AT 25 MCG. SBP 100'S, OFF VASOPRESSORS. MONITORING PT.
[2019-08-18] MEDS: fentaNYL Drip 2500mCg/250mlNS 250 ML IV SCH (10:23)
--- NOTE | 2019-08-18 10:45 | NUR ---
NOTIFIED MEÑO RT THAT PT'S. RR IS IN THE MID 30'S LOW 40'S AND PT. WAS RESTARTED ON FENTANYL GTT. FOR SEDATION. MEÑO AT THE BS AND WILL DO ABG.
[2019-08-18] MEDS: LINEZOLID 600MG/300ML 300 ML IV SCH ×2 (10:49→23:08)
[2019-08-18] MEDS: NOREPINEPHRINE 8 MG/250ML KIT 250 ML IV SCH (10:50)
--- NOTE | 2019-08-18 10:50 | NUR ---
SBP DECREASED TO MID 50'S-60'S. CHANGED BP CUFF WITH READING STILL 50'S-60'S. STARTED PT. ON LEVOPHED GTT. AT 10 MCG. MONITORING BP. RR REMAINS 30'S-LOW 40'S. INCREASED FENTANYL GTT. TO 50 MCG.
--- NOTE | 2019-08-18 11:14 | NUR ---
MEÑO RT CALLED DR. HOLLOWAY WITH ABG RESULTS. SPOKE WITH DR. HOLLOWAY AND GAVE UPDATE ON PT. NEW ORDER RECEIVED TO START PT. ON PRECEDEX GTT. AND WEAN OFF SEDATION. PT. REMAINS WITH RR MID 30'S-LOW 40'S. CONTINUING TO MONITOR PT.
[2019-08-18] MEDS: MIDAZOLAM DRIP 50 mg/50mL 50 ML IV SCH (11:16)
[2019-08-18] MEDS: PROPOFOL 100 ML IV SCH (11:29)
[2019-08-18] MEDS: DexMEDEtomidine 400 MCG in D5W 5% 96 ML IV SCH ×2 (12:22→20:44)
--- NOTE | 2019-08-18 12:30 | NUR ---
RR DECREASED TO MID 20'S TO LOW 30'S AT TIMES. O2 SATS UPPER 90'S. NO SIGNS OF RESP. DISTRESS.
--- NOTE | 2019-08-18 14:07 | NUR ---
DR. LEVI Provider/Hospitalist at bedside. GAVE UPDATE ON PT. NEW ORDERS RECEIVED.
--- NOTE | 2019-08-18 14:41 | NUR ---
Called/paged Dr. LEVI called re:. Waiting for call back. Continue care.
--- NOTE | 2019-08-18 14:45 | NUR ---
returned call Dr. LEVI returned call, updated on patient status and reason for call, orders received. Continue care.
--- NOTE | 2019-08-18 14:57 | NUR ---
NUTRITION FOLLOWUP NOTES Pt wt is 87.0 kg today Pt sedated, ventilated, with no relatives at bedside when rounded this morning. Unable to obtain current nutrition status and confirmation of feeding rate d/t RN and RT were attending pt for stabilization. Will continue to monitor and followup prn. Est. Energy Needs: 5781-6869 kcal (20-22 kcal/kg BW). Est. Protein Needs: 64-80 gms/day (1.2-1.5 gms/kg Adj.BW). Will continue to monitor pertinent labs and reassess nutrient need prn LABS: GLUC 113 H, CA 8.1 L, TOT PRO WNL, ALB 2.1 L GI: No BM noted since 08/14/19 per RN doc. BS: 13 moderate risk, skin intact, Please refer to wound assessment report for full details PES: Problem 1) Altered nutrition related lab values r/t current medical condition aeb hypokalemia, hypocalcemia, hypoproteinemia 2) Obese, Class I r/t excessive energy intake prior to admission aeb BMI 33.1 kg/m2 and 169%IBW 3) Inadequate energy intake r/t current energy needs aeb NPO, intubated status Comments Will continue to monitor NPO status, skin status, pertinent labs and weight trend. F/u in 2 to 3 days. Recommendations: 1) If still NPO in 48 hours, and with improved potassium levels, consider to EN support of Glucerna 1.2 Anthony @ 55 ml/hr as tolerated when medically appropriate. 2) Advance gradually to oral CCHO diet when medically appropriate. 3) Continue current plan of care.
[2019-08-18] MEDS ORDERED: WARFARIN SODIUM 2 MG TAB PO ONE (17:00)
--- NOTE | 2019-08-18 19:45 | NUR ---
Opening Shift Note Received pt on mechanical ventilator on precedex. Pt does not open eyes but responds to painful stimuli. Levophed also infusing at 0.5mcg. See IV spreadsheet for details. Full assessment done see interventions. Cough/gag reflex positive. NGT to right nare, LIS. ABD large, round, and soft. Hypoactive BS. Polo catheter draining to gravity, free of kinks, secured below bladder. Two blisters noted where R IJ TLC dressing is; Intact and fluid filled. Erythema to abdominal folds and groin area. Pt repositioned and all bony prominences off loaded. Bed locked in lowest position. All alarms on and audible. Pt in full view of RN.
[2019-08-18] MEDS: ENOXAPARIN SOD 80 MG/0.8ML SYRINGE SC SCH (23:08)
[2019-08-19] VITALS (77 sets, daily range): BP systolic 77–141; BP diastolic 42–85
[2019-08-19] MEDS: ALBUTEROL SULF 2.5 MG/0.5ML(0.5%) NEB SOLN NEB SCH ×4 (00:10→18:47)
[2019-08-19] MEDS: IPRATROPIUM BROM 0.5 MG/2.5ML INH SOL NEB SCH ×4 (00:10→18:47)
[2019-08-19] MEDS: InsuLIN REG 1unit/0.01ml Soln (100units/ml) SC SCH ×4 (00:26→18:00)
[2019-08-19] MEDS: ACCU-CHEK COMFORT CURVE STRIP VI SCH ×4 (00:27→18:00)
[2019-08-19] MEDS: PIPERACILLIN-TAZOB 3.375GM 100 ML IV SCH ×4 (02:00→20:22)
--- NOTE | 2019-08-19 04:00 | NUR ---
SKIN ASSESSMENT- BLISTERS TO NECK UNDER IJ DRESSING LEAKING SEROUS/BLOODY FLUID AND OPEN; PICTURES TAKEN AND GAUZE APPLIED WITH MEDIPORE.
[2019-08-19 04:19] LABS: Basophils # (auto) 0 10 ^3/uL (0-0.2); Basophils % (auto) 0.7 % (0.0-2.0); Eosinophils # (auto) 0.3 10 ^3/uL (0-0.8); Eosinophils % (auto) 4.6 % (0.0-7.0); Hematocrit 36.7 % (36.0-46.0); Hemoglobin 12.3 g/dL (12.2-16.2); Lymphocytes # (auto) 1.5 10 ^3/uL (0.4-5.4); Lymphocytes % (auto) 24.3 % (10.0-50.0); Mean Corpuscular Hemoglobin 30.4 pg (28.0-32.0); Mean Corpuscular Hgb Conc. 33.5 g/dL (32.0-36.0); Mean Corpuscular Volume 90.5 fL (80.0-100.0); Monocytes # (auto) 0.5 10 ^3/uL (0-1.3); Monocytes % (auto) 8.3 % (0.0-12.0); Neutrophils # (auto) 3.9 10 ^3/uL (1.6-8.6); Neutrophils % (auto) 62.1 % (37.0-80.0); Platelet Count (auto) 214 10^3/uL (140-450); Red Blood Cells 4.06 10^6/uL (4.0-5.20); Red Cell Distribution Width 15.6 % (11.8-14.3); White Blood Cell 6.3 10^3/uL (4.4-10.8)
--- NOTE | 2019-08-19 04:30 | NUR ---
CARES PT CLEANSED AND LINEN CHANGED AT THIS TIME. PT TOLERATED WELL.
[2019-08-19 04:40] LABS: BUN/Creatinine Ratio 10.5; Calcium 8.5 mg/dL (8.5-10.1)
[2019-08-19 05:05] LABS: Potassium 2.9 mmol/L (3.5-5.1)
--- NOTE | 2019-08-19 05:11 | NUR ---
RECEIVED CRITICAL POTASSIUM LEVEL. HOSPITALIST PAGED
[2019-08-19] MEDS ORDERED: POTASSIUM CHL 20MEQ/100ML 100 ML IV ONE (05:30)
--- NOTE | 2019-08-19 05:30 | NUR ---
ORDERS RECEIVED FROM HOSPITALIST FOR 20 MEQ POTASSIUM IV.
--- NOTE | 2019-08-19 07:15 | NUR ---
REPORT RECEIVED FROM ORCHESTRA LEADER NURSE. PATIENT RESTING IN BED AT THIS TIME. RESPIRATIONS EVEN AND UNLABORED, INTUBATED AND ON PRECEDEX. NO SIGNS OF ACUTE DISTRESS NOTED. BED IN LOW POSITION. WILL CONTINUE TO MONITOR.
[2019-08-19] MEDS: DexMEDEtomidine 400 MCG in D5W 5% 96 ML IV SCH (08:03)
--- NOTE | 2019-08-19 09:28 | NUR ---
TRANSFERRED PATIENT TO ROOM 111 VIA BED CONNECTED TO PORTABLE MONITOR AND AMBU-BAG. RESPIRATORY THERAPIST AT BEDSIDE. NO SIGNS OF DISTRESS NOTED. CONNECTED TO BEDSIDE MONITOR AND VENTILATOR. VITAL SIGNS STABLE. WILL CONTINUE TO MONITOR.
[2019-08-19] MEDS: ENOXAPARIN SOD 80 MG/0.8ML SYRINGE SC SCH ×2 (10:29→22:08)
[2019-08-19] MEDS: FAMOTIDINE (10MG/ML) 2ML VL IV SCH (10:29)
[2019-08-19] MEDS: LINEZOLID 600MG/300ML 300 ML IV SCH ×2 (10:30→22:07)
[2019-08-19] MEDS: MIDAZOLAM DRIP 50 mg/50mL 50 ML IV SCH (10:52)
[2019-08-19] MEDS: PROPOFOL 100 ML IV SCH (12:01)
--- NOTE | 2019-08-19 12:31 | NUR ---
DONTE SIMS HANDLE MACHINE OPERATOR AT BEDSIDE TO ASSESS PATIENT AND DISCUSS PLAN OF CARE. NO NEW ORDERS AT THIS TIME.
[2019-08-19] MEDS: NOREPINEPHRINE 8 MG/250ML KIT 250 ML IV SCH (12:45)
--- NOTE | 2019-08-19 13:33 | NUR ---
DR PLATT AT BEDSIDE TO ASSESS PATIENT AND DISCUSS PLAN OF CARE. NO NEW ORDERS AT THIS TIME.
--- NOTE | 2019-08-19 14:00 | NUR ---
DR HOLLOWAY AT BEDSIDE TO ASSESS PATIENT AND DISCUSS PLAN OF CARE. NO NEW ORDERS AT THIS TIME.
[2019-08-19] MEDS: fentaNYL Drip 2500mCg/250mlNS 250 ML IV SCH (14:38)
--- NOTE | 2019-08-19 14:53 | NUR ---
PATIENT PLACED ON CPAP PER DR HOLLOWAY. TOLERATING WELL, WILL CONTINUE TO MONITOR.
--- NOTE | 2019-08-19 15:23 | NUR ---
Faxed life vest order to [facility].
[2019-08-19] MEDS ORDERED: FUROSEMIDE 100 MG/10ML VIAL IV ONE (16:30)
--- NOTE | 2019-08-19 16:54 | NUR ---
RT NOTE: PT. PLACED BACK ON ORDERED VENT SETTINGS OF AC 12, 450, +7, 30%. PT. NOT FOLLOWING VERBAL COMMANDS. ROSALINE OWEN.
--- NOTE | 2019-08-19 18:15 | NUR ---
CENTRAL LINE DRESSING CHANGED USING STERILE TECHNIQUE PATIENT TOLERATED WELL. NOTED SKIN TEAR NEAR CENTRAL LINE INSERTION SITE. APPLIED STERILE GAUZE TO AVOID IRRITATION FROM TEGADERM.
--- NOTE | 2019-08-19 19:30 | NUR ---
Opening Shift Note Received pt on mechanical ventilator on precedex. Pt opens eyes spontaneously but does not follow commands. Levophed also infusing at 1mcg. See IV spreadsheet for details. Full assessment done see interventions. Cough/gag reflex hyperactive. NGT to right nare, clamped. Ploo catheter draining to gravity, free of kinks, secured below bladder. Two blisters open on neck with dressing. CDI. Pt repositioned and all bony prominences off loaded. Bed locked in lowest position. All alarms on and audible. Pt in full view of RN.
[2019-08-20] VITALS (87 sets, daily range): BP systolic 89–139; BP diastolic 39–89
--- NOTE | 2019-08-20 00:26 | NUR ---
ROUNDED: COVERING ASSIGNED RN FOR LUNCH BREAK. PATIENT RESTING IN BED, EYES INTERMITTENTLY OPEN. NO PAIN BEHAVIORS IDENTIFIED. NO PAIN BEHAVIORS IDENTIFIED. VSS, OTHERWISE. WILL ENDORSE CARE BACK TO ASSIGNED RN
[2019-08-20] MEDS: ALBUTEROL SULF 2.5 MG/0.5ML(0.5%) NEB SOLN NEB SCH ×4 (00:39→18:44)
[2019-08-20] MEDS: IPRATROPIUM BROM 0.5 MG/2.5ML INH SOL NEB SCH ×4 (00:39→18:44)
[2019-08-20] MEDS: PIPERACILLIN-TAZOB 3.375GM 100 ML IV SCH ×4 (01:54→20:52)
--- NOTE | 2019-08-20 04:00 | NUR ---
CENTRAL LINE DRESSING CHANGE/ DRESSINGS PT'S CENTRAL LINE DRESSING SATURATED WITH BLOOD, DRESSING CHANGED. OPEN BLISTER UNDER DRESSING. BLISTER DRESSING CHANGED. THERA HONEY APPLIED WITH OPTIFOAM
[2019-08-20 04:42] LABS: Basophils # (auto) 0 10 ^3/uL (0-0.2); Basophils % (auto) 0.4 % (0.0-2.0); Eosinophils # (auto) 0.1 10 ^3/uL (0-0.8); Hematocrit 37.2 % (36.0-46.0); Hemoglobin 12.9 g/dL (12.2-16.2); Lymphocytes # (auto) 1.3 10 ^3/uL (0.4-5.4); Lymphocytes % (auto) 18.2 % (10.0-50.0); Mean Corpuscular Hgb Conc. 34.5 g/dL (32.0-36.0); Mean Corpuscular Volume 89.7 fL (80.0-100.0); Monocytes # (auto) 0.6 10 ^3/uL (0-1.3); Monocytes % (auto) 8.4 % (0.0-12.0); Platelet Count (auto) 233 10^3/uL (140-450); Red Blood Cells 4.15 10^6/uL (4.0-5.20); Red Cell Distribution Width 15.2 % (11.8-14.3); White Blood Cell 7.1 10^3/uL (4.4-10.8)
[2019-08-20 04:53] LABS: BUN/Creatinine Ratio 9.8; Calcium 8.8 mg/dL (8.5-10.1); Potassium 3.4 mmol/L (3.5-5.1)
--- NOTE | 2019-08-20 05:00 | NUR ---
CARES PT GIVEN FULL BED BATH AND LINEN CHANGE. PT TOLERATED WELL.
[2019-08-20] MEDS: ACCU-CHEK COMFORT CURVE STRIP VI SCH ×5 (06:00→23:25)
[2019-08-20] MEDS: InsuLIN REG 1unit/0.01ml Soln (100units/ml) SC SCH ×5 (06:00→23:26)
--- NOTE | 2019-08-20 06:00 | NUR ---
CENTRAL LINE DRESSING SATURATED WITH BLOOD AND LEAKING. APPLIED HEMO STAT DRESSING TO CENTRAL LINE INSERTION SITE AND CHANGED DRESSING VIA STERILE TECHNIQUE.
[2019-08-20 06:52] LABS: INR 2.3 (0.9-1.15); Partial Thromboplastin Time 48.4 sec (23.64-32.05)
--- NOTE | 2019-08-20 07:15 | NUR ---
REPORT RECEIVED FROM ASSISTANT PROFESSOR OF PSYCHOLOGY NURSE. PATIENT RESTLESS IN BED AT THIS TIME, INCREASED PRECEDEX PER PROTOCOL. RESPIRATIONS EVEN BUT LABORED. BED IN LOW POSITION. WILL CONTINUE TO MONITOR.
--- NOTE | 2019-08-20 08:35 | NUR ---
DRESSING CHANGED DRESSING CHANGED TO RIGHT IJ CENTRAL LINE. SITE SATURATED IN BLOOD SITE IS OOZING. APPLIED STERILE DRESSING USING STERILE TECHNIQUE AND APPLIED PRESSURE TO SITE. WILL CONTINUE TO MONITOR.
--- NOTE | 2019-08-20 08:35 | NUR ---
CPAP INITIATED AT THIS TIME, PS 7, PEEP5, 30% FIO2. PT AWAKE AND FOLLOWS COMMANDS. PT ON PRECEDEX. CPAP TRIAL TERMINATED DUE TO SPONTANEOUS vT 150ml. PT SWITCHED BACK TO PREVIOUS VENTILATOR SETTINGS OF AC RR 12, VT 450, PEEP 7. ROSALINE MENESES AT BEDSIDE AND AWARE OF CPAP FAIL.
[2019-08-20] MEDS: ENOXAPARIN SOD 80 MG/0.8ML SYRINGE SC SCH (10:00)
[2019-08-20] MEDS: FAMOTIDINE (10MG/ML) 2ML VL IV SCH (10:11)
[2019-08-20] MEDS: LINEZOLID 600MG/300ML 300 ML IV SCH ×2 (10:12→23:27)
[2019-08-20] MEDS: MIDAZOLAM DRIP 50 mg/50mL 50 ML IV SCH (10:52)
[2019-08-20] MEDS: DexMEDEtomidine 400 MCG in D5W 5% 96 ML IV SCH (10:57)
[2019-08-20] MEDS: PROPOFOL 100 ML IV SCH (12:01)
[2019-08-20] MEDS: NOREPINEPHRINE 8 MG/250ML KIT 250 ML IV SCH (12:45)
--- NOTE | 2019-08-20 13:35 | NUR ---
DR PLATT AT BEDSIDE TO ASSESS PATIENT AND DISCUSS PLAN OF CARE. ALL ORDERS NOTED IN CHART.
--- NOTE | 2019-08-20 13:35 | NUR ---
DR HOLLOWAY AT BEDSIDE TO ASSESS PATIENT AND DISCUSS PLAN OF CARE. ORDERS NOTED IN CHART.
[2019-08-20] MEDS ORDERED: FUROSEMIDE 20 MG/2 ML VIAL IV ONE (14:30)
[2019-08-20] MEDS ORDERED: Jevity 1.2 Cal/Fiber 1 Liter GT SCH (14:30)
[2019-08-20] MEDS ORDERED: POTASSIUM EFFERVESENT TAB 25 MEQ GT ONE (14:30)
[2019-08-20] MEDS: fentaNYL Drip 2500mCg/250mlNS 250 ML IV SCH (14:38)
[2019-08-20] MEDS ORDERED: FUROSEMIDE INJECTION 10 ML ONE (15:07)
--- NOTE | 2019-08-20 15:25 | NUR ---
PT EXTUBATED AT THIS TIME PER DR HOLLOWAY ORDERS. PT PLACED ON 40% COOL MIST AEROSOL. SPO2 100%. NO STRIDOR NOTED. NO RESPIRATORY DISTRESS NOTED.
--- NOTE | 2019-08-20 16:28 | NUR ---
PAGED DR PLATT FOR PATIENTS BLEEDING NOTED TO CENTRAL LINE AND ORALLY. AWAITING CALL BACK.
--- NOTE | 2019-08-20 16:32 | NUR ---
SPOKE TO DR PLATT ABOUT BLEEDING AND INFORMED THAT I DID NOT GIVE LOVENOX THIS MORNING. PER MD DECREASE DOSE TO 60MG Q12 HOURS NOTED IN CHART. ALL ORDERS PLACED.
--- NOTE | 2019-08-20 18:15 | NUR ---
PATIENT PLACED ON 2 LITERS NASAL CANULA. SATURATIONS 98% WILL CONTINUE TO MONITOR.
--- NOTE | 2019-08-20 18:20 | NUR ---
SWALLOW EVALUATION PATIENT TOLERATED ICE CHIPS AND JELLO. NO SIGNS OF ASPIRATION NOTED. DISCONTINUED NGT PATIENT TOLERATED WELL. WILL CONTINUE TO MONITOR.
--- NOTE | 2019-08-20 19:15 | NUR ---
OPENING NOTES ASSUMED CARE, AWAKE, NONVERBAL, STILL RESTLESS BUT WITH NO SIGNS OF DISTRESS. IV ACCESS PATENT AND INTACT, SMITH CATHETER DRAINING TO A UROBAG TO A LIGHT-DANIEL URINE, ON O2 @ 2L/MIN/NASAL CANNULA, SCD'S ON BOTH LEGS NOTED. BED IN LOWEST POSITION WITH SIDE RAILS UP, BED ALARM ON. SAFETY AND FALL MEASURES INSTITUTED.
--- NOTE | 2019-08-20 19:32 | NUR ---
SPOKE TO DR HOLLOWAY AND UPDATED ON PATIENT STATUS. PER MD PATIENT OK TO DOWNGRADE TO SARAH.
--- NOTE | 2019-08-20 20:13 | NUR ---
Elimination/hygiene Moderate amount of soft, brown stools noted. cleansed and kept dry and comfortable, full linens changed. Repositioned for comfort.
--- NOTE | 2019-08-20 22:00 | NUR ---
PROVIDED WITH APPLESAUCE, WELL TOLERATED WITH NO SIGNS OF CHOKING OR COUGHING.
[2019-08-21] VITALS (9 sets, daily range): BP systolic 98–123; BP diastolic 57–74
[2019-08-21] MEDS: ALBUTEROL SULF 2.5 MG/0.5ML(0.5%) NEB SOLN NEB SCH ×4 (00:13→19:02)
[2019-08-21] MEDS: IPRATROPIUM BROM 0.5 MG/2.5ML INH SOL NEB SCH ×4 (00:13→19:02)
[2019-08-21] MEDS: PIPERACILLIN-TAZOB 3.375GM 100 ML IV SCH ×4 (02:14→22:00)
--- NOTE | 2019-08-21 03:45 | NUR ---
ELIMINATION/HYGIENE MODERATE AMOUNT OF SOFT, BROWN STOOLS NOTED, CLEANSED AND KEPT DRY AND COMFORTABLE, Z-GUARD APPLIED TO SACRUM AND PLACED OPTIFOAM DRESSING. REPOSITIONED FOR COMFORT.
--- NOTE | 2019-08-21 04:06 | NUR ---
DRESSING CLEANSED WOUND IN THE ANTERIOR NECK AND COVERED WITH OPTIFOAM CENTRAL LINE DRESSING CHANGED ASEPTICALLY.
[2019-08-21 04:16] LABS: BUN/Creatinine Ratio 10.4; Calcium 8.7 mg/dL (8.5-10.1)
--- NOTE | 2019-08-21 05:29 | NUR ---
DR. MAHONEY CALLED BACK, UPDATED ON PT'S STATUS AND K LEVEL, GAVE AN ORDER FOR K-RIDER 2 BAGS. WILL CARRY OUT AN ORDER AFTER BEING READ BACK AND VERIFIED.
[2019-08-21] MEDS ORDERED: POTASSIUM CHL 20MEQ/100ML 100 ML IV ONE (05:42)
[2019-08-21] MEDS: InsuLIN REG 1unit/0.01ml Soln (100units/ml) SC SCH ×3 (06:00→18:35)
[2019-08-21] MEDS: ACCU-CHEK COMFORT CURVE STRIP VI SCH ×3 (06:00→18:35)
[2019-08-21] MEDS: POTASSIUM CHL 20MEQ/100ML 100 ML IV SCH ×2 (06:50→08:27)
--- NOTE | 2019-08-21 08:00 | NUR ---
OPENING SHIFT NOTE: Received report from NOC RN, Angela Collins. Assumed care of patient. Received patient lying in bed, patient appears restless and on bedside monitors with alarms in place. Patient is alert to self, aphasic. When asked if in pain, patient shakes head 'no'. Patient on 2L NC with O2 sats98%. Patient with KCl Sukhi 20meq running at 10ml/hr to right IJ TLC. Patient also with PIV to right AC #18, flushes well. Polo catheter draining to gravity with yellow output noted. Bed in lowest position, rails x3 up and call light within reach. Updated on plan of care. Will continue to monitor q1hr/PRN.
[2019-08-21] MEDS: DexMEDEtomidine 400 MCG in D5W 5% 96 ML IV SCH (08:17)
[2019-08-21] MEDS: POTASSIUM EFFERVESENT TAB 25 MEQ GT SCH (10:00)
[2019-08-21] MEDS: FUROSEMIDE 100 MG/10ML VIAL IV SCH (10:00)
[2019-08-21] MEDS: FAMOTIDINE (10MG/ML) 2ML VL IV SCH (10:08)
[2019-08-21] MEDS: ENOXAPARIN SOD 60 MG/0.6 ML SYRINGE SC SCH ×2 (10:09→21:01)
[2019-08-21] MEDS: LINEZOLID 600MG/300ML 300 ML IV SCH ×2 (10:09→21:02)
--- NOTE | 2019-08-21 11:04 | NUR ---
Patient's HR sustaining 130s, ST. Patient still appears restless, shakes head 'no' when asked if in pain. Paged Dr Barber.
--- NOTE | 2019-08-21 11:10 | NUR ---
Respiratory treatment held per therapist due to tachycardia. Lung sounds clear, and treatment not needed at this time. Will continue to monitor.
--- NOTE | 2019-08-21 11:17 | NUR ---
Respiratory note: AT BEDSIDE SETTING UP MEDNEB TX, PT WITH TACHYCARDIA HR 145. TX HELD AT THIS TIME. NOTIFIED RN AGUS. BREATH SOUNDS CLEAR THROUGHOUT, NO S/S OF RESPIRATORY DISTRESS NOTED.
--- NOTE | 2019-08-21 12:30 | NUR ---
MD: Dr Matthews at bedside to examine patient. No new orders given.
--- NOTE | 2019-08-21 19:42 | NUR ---
CLOSING SHIFT NOTE: Patient transferred to 262 on cardiac monitor technician by OSCAR Alexander and SANTIAGO Rincon. Patient remains on 2L NC with O2 sats >95%. Polo draining to gravity. Report given to NOC Shrtuhi WAGGONER. Endorsed care of patient.
--- NOTE | 2019-08-21 20:00 | NUR ---
SHIFT OPENING NOTE RECEIVED PATIENT FROM ICU. AWAKE, ALERT TO SELF. APHASIC, DOES NOT ANSWER QUESTIONS VOCALLY BUT NODDS YES AND NO. OCCASIONALLY MOANS.ON 2L N/C.. HR 120S A FLUTTER. SMITH CATH DRAINING YELLOW URINE TO GRAVITY. RIGHT IJ 3 LUMEN TKO. PHYSICAL ASSESSMENT COMPLETED, SEE INTERVENTIONS. INSTRUCTED ON POC AND TO CALL FOR ASSIST NEEDED. BED IS IN THE LOWEST POSITION WITH SIDE RAILS UP X2, CALL LIGHT IS WITHIN REACH.
[2019-08-22] VITALS (7 sets, daily range): BP systolic 91–110; BP diastolic 51–65
[2019-08-22] MEDS: IPRATROPIUM BROM 0.5 MG/2.5ML INH SOL NEB SCH ×4 (00:35→18:39)
[2019-08-22] MEDS: ALBUTEROL SULF 2.5 MG/0.5ML(0.5%) NEB SOLN NEB SCH ×4 (00:35→18:39)
--- NOTE | 2019-08-22 02:00 | NUR ---
ROUNDS PATIENT QUIETLY LAYING IN BED SLEEPING. NO SOB, DISTRESS OR PAIN NOTED. WILL CONTINUE TO CLOSELY MONITOR.
[2019-08-22] MEDS: PIPERACILLIN-TAZOB 3.375GM 100 ML IV SCH ×4 (04:06→19:38)
[2019-08-22] MEDS: InsuLIN REG 1unit/0.01ml Soln (100units/ml) SC SCH ×4 (05:43→18:00)
[2019-08-22] MEDS: ACCU-CHEK COMFORT CURVE STRIP VI SCH ×4 (05:44→18:01)
--- NOTE | 2019-08-22 06:47 | NUR ---
Respiratory note: AT BEDSIDE FOR MED NEB TX. HELD ALBUTEROL DUE TO ELEVATED HR. RN INFORMED. ATROVENT 0.5MG GIVEN ONLY. PATIENT TOLERATED WELL. NO ADVERSE REACTION NOTED.
--- NOTE | 2019-08-22 06:55 | NUR ---
END OF SHIFT PATIENT IS LAYING IN BED AWAKE. OCCASIONALLY MOANS. NO DISTRESS OR PAIN NOTED. WILL GIVE REPORT AND ENDORSE CARE TO THE DAY SHIFT RN.
--- NOTE | 2019-08-22 08:00 | NUR ---
OPENING SHIFT NOTE: Received report from NOC RNShruthi. Assumed care of patient. Received patient lying in bed, patient no S/S of distress and on bedside monitors with alarms in place. Patient is alert to self, aphasic. When asked if in pain, patient shakes head 'no'. Patient on 2L NC with O2 sats 98%. Patient with NS running at 10ml/hr to right IJ TLC. Patient also with PIV to right AC #18, flushes well. Polo catheter draining to gravity with yellow output noted. Bed in lowest position, rails x3 up and call light within reach. Updated on plan of care. Will continue to monitor q1hr/PRN.
[2019-08-22 09:19] LABS: Basophils # (auto) 0 10 ^3/uL (0-0.2); Basophils % (auto) 0.8 % (0.0-2.0); Eosinophils # (auto) 0.1 10 ^3/uL (0-0.8); Eosinophils % (auto) 1.2 % (0.0-7.0); Hematocrit 36.5 % (36.0-46.0); Hemoglobin 12.3 g/dL (12.2-16.2); Lymphocytes # (auto) 1.1 10 ^3/uL (0.4-5.4); Lymphocytes % (auto) 18.5 % (10.0-50.0); Mean Corpuscular Hemoglobin 30.6 pg (28.0-32.0); Mean Corpuscular Hgb Conc. 33.9 g/dL (32.0-36.0); Mean Corpuscular Volume 90.4 fL (80.0-100.0); Monocytes # (auto) 0.5 10 ^3/uL (0-1.3); Monocytes % (auto) 7.7 % (0.0-12.0); Neutrophils # (auto) 4.3 10 ^3/uL (1.6-8.6); Neutrophils % (auto) 71.8 % (37.0-80.0); Nucleated Red Blood Cells % 0.1 %; Platelet Count (auto) 211 10^3/uL (140-450); Red Blood Cells 4.03 10^6/uL (4.0-5.20); Red Cell Distribution Width 15.4 % (11.8-14.3)
[2019-08-22 09:35] LABS: Albumin 2.5 g/dL (3.4-5.0); Calcium 8.8 mg/dL (8.5-10.1); Potassium 3.2 mmol/L (3.5-5.1)
[2019-08-22 09:39] LABS: BUN/Creatinine Ratio 11.8; Bilirubin, Total 0.7 mg/dL (0.2-1.0); Total Protein 6.9 g/dL (6.4-8.2)
[2019-08-22] MEDS: POTASSIUM EFFERVESENT TAB 25 MEQ GT SCH (10:00)
--- NOTE | 2019-08-22 10:30 | NUR ---
MD: Dr Barber at bedside to see patient. Orders received.
[2019-08-22] MEDS: LINEZOLID 600MG/300ML 300 ML IV SCH ×2 (10:58→22:16)
[2019-08-22] MEDS: FAMOTIDINE (10MG/ML) 2ML VL IV SCH (10:58)
[2019-08-22] MEDS: FUROSEMIDE 100 MG/10ML VIAL IV SCH (10:59)
[2019-08-22] MEDS: ENOXAPARIN SOD 60 MG/0.6 ML SYRINGE SC SCH ×2 (11:01→22:17)
--- NOTE | 2019-08-22 12:00 | NUR ---
TLC discontinued from right IJ. Catheter intact. Pressure held for five minutes. Patient tolerated well.
[2019-08-22] MEDS: POTASSIUM CHLORIDE 40 MEQ in D5W 5% 1,000 ML IV SCH ×2 (12:11→21:12)
--- NOTE | 2019-08-22 12:25 | NUR ---
WOUND CARE NOTE: Wound care in to see patient for skin integrity monitoring. Patient continue resting in bed in SDU Rm. 262. Patient is awake, non-verbal. Patient appears to be in no pain using Daniels Fontaine Faces Pain Scale. Patient need assistance in turning and repositioning. Her Hong score is 13. Skin assessment done with the help of SDU Benjamin Teixeira. No wound noted other than scab skin tear/dry blister to patient's anterior neck, developed during IJ site dressing change. Bedside nurse just cleansed and changed dressing to anterior neck resolving skin tear wound. No pressure injury noted. Patient is receiving BID/PRN cleaning and application of Barrier cream to sacral buttocks as preventative. Patient tolerated well, reposition for comfort facing her Rt side, redistributed pressure points with pillows. RECOMMENDATION: Continuation of all wound care orders prescribed by MD, continue with skin/wound plan of care,continue monitoring by wound care while patient is hospitalized. Addendum: 08/22/19 at 1556 by Linh Yang RN Amended: Links added.
--- NOTE | 2019-08-22 12:31 | NUR ---
Report given to ROSALINE Lezama covering for ROSALINE Stanton. Patient placed on tele box #[id number] and transferred via bed to 291A.
--- NOTE | 2019-08-22 12:41 | NUR ---
Telemetry admit from [facility] admitted to Telemetry unit after SBAR received. Patient oriented to Romy Alba, RN primary RN, unit, room, bed, and unit policies regarding patient care. Patient now on continuous telemetry monitoring, tele box # 58. Patient placed on bedside oxygen, bed is set in lowest locked position with side rails up x 2 for safety and call light is within reach. No distress noted. Patient is resting in bed, with 2L/min NC, breaths are even and unlabored. Will continue to monitor.
--- NOTE | 2019-08-22 15:38 | NUR ---
Called patient's son, Vlad, and notified him of transfer.
--- NOTE | 2019-08-22 18:39 | NUR ---
Respiratory note: AT BEDSIDE FOR MED DINO WILKERSON.
--- NOTE | 2019-08-22 19:27 | NUR ---
RECEIVED PATIENT FROM DAY SHIFT RN. PATIENT RESTING IN BED. NO S/S OF DISTRESS NOTED. SHAKED HER HEAD FOR NO PAIN FOR NOW. SMITH CATH IN PLACE DRAINING TO GRAVITY. DRESSING ON RIGHT FRONT OF NECK C/D/I. PATIENT ALERT TO SELF AND APHASIC. POC INSTRUCTED AND ENCOURAGED PATIENT TO CALL FOR DAT INSTRUCTOR IF NEEDED. BED IN LOWEST POSITION WITH SIDE RAILS UP X 2. CALL CARRANZA WITHIN REACH.ALARM ON. CONTINUE TO MONITOR FOR CHANGES Q1H AND PRN.
--- NOTE | 2019-08-22 21:18 | NUR ---
REPOSITIONED PATIENT. PATIENT TOLERATED WELL. CONTINUE CARE
[2019-08-22] MEDS ORDERED: METOPROLOL TARTRATE 25 MG TAB PO SCH (22:00)
[2019-08-22] MEDS: CARVEDILOL 3.125 MG TAB PO SCH (22:00)
[2019-08-22] MEDS: ATORVASTATIN 20 MG TAB PO SCH (22:17)
--- NOTE | 2019-08-22 22:17 | NUR ---
ORAL MEDICATION GIVEN ORDERED. PATIENT SWALLOWED WELL. NO S/S OF ASPIRATION NOTED. CONTINUE TO MONITOR.
--- NOTE | 2019-08-22 23:35 | NUR ---
REPOSITIONED PATIENT. PATIENT TOLERATED WELL. CONTINUE TO MONITOR.
[2019-08-23] MEDS: ACCU-CHEK COMFORT CURVE STRIP VI SCH ×4 (00:04→18:06)
[2019-08-23] MEDS: InsuLIN REG 1unit/0.01ml Soln (100units/ml) SC SCH ×4 (00:05→18:00)
--- NOTE | 2019-08-23 00:28 | NUR ---
ACCU-CHECK, BS 151. INSULIN GIVEN ORDERED. CONTINUE TO MONITOR. Addendum: 08/23/19 at 0029 by Rosa Alberto RN ACCU-CHECK, BS 140. INSULIN GIVEN ORDERED. CONTINUE TO MONITOR.
--- NOTE | 2019-08-23 00:29 | NUR ---
ACCU-CHECK, BS 140. INSULIN GIVEN ORDERED. CONTINUE TO MONITOR.
[2019-08-23] MEDS: ALBUTEROL SULF 2.5 MG/0.5ML(0.5%) NEB SOLN NEB SCH ×3 (00:39→18:50)
[2019-08-23] MEDS: IPRATROPIUM BROM 0.5 MG/2.5ML INH SOL NEB SCH ×3 (00:39→18:50)
--- NOTE | 2019-08-23 00:47 | NUR ---
Respiratory note: AT BEDSIDE FOR MED DINO WILKERSON.
[2019-08-23] MEDS: PIPERACILLIN-TAZOB 3.375GM 100 ML IV SCH ×4 (01:48→20:24)
--- NOTE | 2019-08-23 01:49 | NUR ---
REPOSITIONED PATIENT. PATIENT TOLERATED WELL. CONTINUE TO MONITOR.
--- NOTE | 2019-08-23 03:55 | NUR ---
REPOSITIONED PATIENT. PATIENT TOLERATED WELL. CONTINUE TO MONITOR.
[2019-08-23 05:00] VITALS: BP 91/63
--- NOTE | 2019-08-23 07:17 | NUR ---
Opening Shift Note Assumed care of patient, awake and alert. Patient is aphasic, is able to answer questions by nodding head. No S/S of distress/SOB or pain. Patient is on 2L/min NC, breaths are even and unlabored. Instructed on POC and to call for assist PRN, will continue to monitor for changes Q1hr and PRN. Bed is set in lowest locked position with side rails up x 2 for safety and call light is within reach.
[2019-08-23] MEDS: POTASSIUM CHLORIDE 40 MEQ in D5W 5% 1,000 ML IV SCH (08:47)
[2019-08-23 09:10] VITALS: BP 95/71
[2019-08-23 09:27] LABS: Basophils # (auto) 0.1 10 ^3/uL (0-0.2); Basophils % (auto) 0.9 % (0.0-2.0); Eosinophils # (auto) 0.1 10 ^3/uL (0-0.8); Eosinophils % (auto) 0.9 % (0.0-7.0); Hemoglobin 12.7 g/dL (12.2-16.2); Lymphocytes # (auto) 1.2 10 ^3/uL (0.4-5.4); Lymphocytes % (auto) 11.7 % (10.0-50.0); Mean Corpuscular Hemoglobin 30.2 pg (28.0-32.0); Mean Corpuscular Hgb Conc. 33.5 g/dL (32.0-36.0); Mean Corpuscular Volume 90.3 fL (80.0-100.0); Monocytes # (auto) 0.6 10 ^3/uL (0-1.3); Monocytes % (auto) 6.2 % (0.0-12.0); Neutrophils # (auto) 8.2 10 ^3/uL (1.6-8.6); Neutrophils % (auto) 80.3 % (37.0-80.0); Nucleated Red Blood Cells % 0.1 %; Platelet Count (auto) 226 10^3/uL (140-450); Red Blood Cells 4.21 10^6/uL (4.0-5.20); Red Cell Distribution Width 15.3 % (11.8-14.3); White Blood Cell 10.3 10^3/uL (4.4-10.8)
[2019-08-23 09:41] LABS: Albumin 2.6 g/dL (3.4-5.0); Calcium 8.8 mg/dL (8.5-10.1); INR 1.4 (0.9-1.15); Magnesium 2.3 mg/dL (1.6-2.6); Partial Thromboplastin Time 34.3 sec (23.64-32.05); Potassium 3.1 mmol/L (3.5-5.1)
[2019-08-23 09:45] LABS: BUN/Creatinine Ratio 9.2; Bilirubin, Total 0.6 mg/dL (0.2-1.0); Phosphorus 2.5 mg/dL (2.5-4.90); Total Protein 7.3 g/dL (6.4-8.2)
[2019-08-23] MEDS: CARVEDILOL 3.125 MG TAB PO SCH ×2 (10:00→22:10)
[2019-08-23] MEDS ORDERED: ASPirin 81 mg TAB PO SCH (10:00)
[2019-08-23] MEDS: FUROSEMIDE 100 MG/10ML VIAL IV SCH (10:00)
[2019-08-23] MEDS: LISINOPRIL 5 MG TAB PO SCH (10:00)
[2019-08-23] MEDS ORDERED: AMIODARONE HCL 150 MG in D5W 5% 100 ML IV ONE (10:15)
[2019-08-23] MEDS ORDERED: DIGOXIN (250MCG/ML) 2 ML AMPULE IV ONE (10:15)
[2019-08-23] MEDS ORDERED: POTASSIUM CHLORIDE 40 MEQ, LIDOCAINE 1% (LOCAL ANESTH.) 4 ML in SODIUM CHL 0.9% 100 ML IV ONE (10:15)
[2019-08-23] MEDS ORDERED: ADENOSINE 60 MG in GIVE UN-DILUTED 0 ML IV STA (10:23)
[2019-08-23] MEDS: FAMOTIDINE (10MG/ML) 2ML VL IV SCH (11:18)
[2019-08-23] MEDS: ENOXAPARIN SOD 60 MG/0.6 ML SYRINGE SC SCH ×2 (11:21→22:11)
--- NOTE | 2019-08-23 11:36 | NUR ---
D/C Planning Stock Selector consult regarding Home Health safety evaluation. Contacted [facility] health and clinical information was faxed to agency. Per Tracy with [facility] patient has been accepted and service to start within 24/48hrs upon d/c day. Faxed order to [facility] requesting authorization for [facility] health. Sajan De Leon with [facility] authorization for home health is [id number]. Addendum: 08/23/19 at 1142 by MAIRA ALEMAN Amended: Links added.
[2019-08-23] MEDS: LINEZOLID 600MG/300ML 300 ML IV SCH (12:04)
--- NOTE | 2019-08-23 12:05 | NUR ---
Amiodarone bolus administered VS throughout administration are as follows 11:50: HR:111 BP: 110/79 O2 SAT: 98% 11:55: HR:101 BP: 89/64 O2 SAT: 97% 12:00: HR:93 BP: 95/65 O2 SAT: 97% 12:05: HR:85 BP: 98/62 O2 SAT: 98%
[2019-08-23 13:00] VITALS: BP 109/69
--- NOTE | 2019-08-23 13:21 | NUR ---
SWALLOW EVALUATED. PATIENT NONVERBAL BUT ABLE TO FOLLOW COMMANDS. PATIENT HAS NATURAL TEETH. ABLE TO TOLERATE PUREE DIET TEXTURE WITH THIN LIQUIDS WITH NO OVERT SIGNS OR SYMPTOMS OF ASPIRATION. TRIAL WITH STRAW BETTER FOR PATIENT DUE TO LEFT SIDE DEFICIT. NURSING NOTIFIED.
[2019-08-23 15:12] VITALS: BP 102/66
--- NOTE | 2019-08-23 15:15 | NUR ---
NUTRITION FOLLOWUP + CONSULT NOTES Pt wt is 71.3 kg today Pt is non-sedated, extubated, aphasic with no relatives at bedside but with RN present when rounded this morning. Pt diet is upgraded to pureed. Pt is active for a swallow eval, d/t pt having difficulty swallowing and refusing to eat or drink. Will continue to monitor and followup prn. Est. Energy Needs: 4484-7434 kcal (20-22 kcal/kg BW). Est. Protein Needs: 64-80 gms/day (1.2-1.5 gms/kg Adj.BW). Will continue to monitor pertinent labs and reassess nutrient need prn LABS: GLUC 121 H, POT 3.1 L, CR 1.09 H, TOT PRO WNL, ALB 2.3 L GI: No BM noted since 08/22/19, incontinent, per RN doc. BS: 13 moderate risk, skin tear, Please refer to wound assessment report for full details PES: Problem 1) Altered nutrition related lab values r/t current medical condition aeb hypokalemia, hypocalcemia, hypoproteinemia 2) Obese, Class I r/t excessive energy intake prior to admission aeb BMI 33.1 kg/m2 and 169%IBW 3) Inadequate energy intake r/t current energy needs aeb NPO, intubated status Comments Will continue to monitor NPO status, skin status, pertinent labs and weight trend. F/u in 2 to 3 days. Recommendations: 1) If still NPO in 48 hours, and with improved potassium levels, consider to EN support of Glucerna 1.2 Anthony @ 55 ml/hr as tolerated when medically appropriate. (RESOLVED) 2) Advance gradually to oral CCHO diet when medically appropriate. (PARTIALLY RESOLVED, UNDER EVAL) 3) Continue current plan of care.
--- NOTE | 2019-08-23 16:02 | NUR ---
STRESS TEST: UNABLE TO COMPLETE, PATIENTS STATUS IS UNSTABLE. WILL ATTEMPT AGAIN TOMORROW ON 08/24/2019.
[2019-08-23 16:33] VITALS: BP 103/60
--- NOTE | 2019-08-23 18:55 | NUR ---
Respiratory note: AT BEDSIDE FOR MED DINO WILKERSON.
--- NOTE | 2019-08-23 19:25 | NUR ---
Endorsed care to NOC Danitza WAGGONER.
--- NOTE | 2019-08-23 19:45 | NUR ---
Opening Shift Note Assumed care of patient, awake and alert. No S/S of distress/SOB or pain. Instructed on POC and to call for assist PRN, will continue to monitor for changes Q1hr and PRN. Patient aphasic, AOX1, patient is able to nod head up and down. Polo below bed draining to gravity.
[2019-08-23] MEDS: DIGOXIN (250MCG/ML) 2 ML AMPULE IV SCH (20:33)
[2019-08-23 22:00] VITALS: BP 109/61
[2019-08-23] MEDS: ATORVASTATIN 20 MG TAB PO SCH (22:11)
--- NOTE | 2019-08-23 23:00 | NUR ---
PATIENT IS INCONTINENT. WHEN BEING CHANGE I NOTICED A RASH TO PATIENT'S INNER RIGHT & LEFT THIGH. TOOK PICTURES AND APPLIED Z GUARD.
[2019-08-24] MEDS: ACCU-CHEK COMFORT CURVE STRIP VI SCH ×5 (00:15→23:44)
[2019-08-24] MEDS: InsuLIN REG 1unit/0.01ml Soln (100units/ml) SC SCH ×5 (00:15→23:44)
[2019-08-24] MEDS: ALBUTEROL SULF 2.5 MG/0.5ML(0.5%) NEB SOLN NEB SCH ×4 (00:28→19:30)
[2019-08-24] MEDS: IPRATROPIUM BROM 0.5 MG/2.5ML INH SOL NEB SCH ×4 (00:28→19:30)
[2019-08-24] MEDS: DIGOXIN (250MCG/ML) 2 ML AMPULE IV SCH ×2 (01:35→06:45)
[2019-08-24] MEDS: PIPERACILLIN-TAZOB 3.375GM 100 ML IV SCH ×2 (01:35→08:00)
--- NOTE | 2019-08-24 03:00 | NUR ---
Patient had a bowel movement. Cleaned and changed.
[2019-08-24 05:00] VITALS: BP 105/63
--- NOTE | 2019-08-24 05:00 | NUR ---
Wound dressing change. Patient tolerated well
--- NOTE | 2019-08-24 05:00 | NUR ---
IV removal IV DC'd with clean sterile technique, catheter fully intact. Pressure dressing applied to site. Patient tolerated well.
--- NOTE | 2019-08-24 05:05 | NUR ---
IV insertion IV access obtained, via clean sterile technique by inserting 22 gauge catheter at RAC after 2 attempts. IV secured properly. No trauma to site. Patient tolerated well.
[2019-08-24 07:22] LABS: BUN/Creatinine Ratio 12.6; Calcium 8.7 mg/dL (8.5-10.1); Potassium 4.1 mmol/L (3.5-5.1)
--- NOTE | 2019-08-24 07:25 | NUR ---
Report given to day shift nurse.
[2019-08-24 08:33] VITALS: BP 101/49
--- NOTE | 2019-08-24 09:30 | NUR ---
STRESS TEST PATIENT WAS REQUESTED FOR STRESS TEST. HOLDING 1000 MEDICATION ADMINSTRATION. WILL CONTINUE WHEN PATIENT RETURNS TO UNIT.
--- NOTE | 2019-08-24 11:51 | NUR ---
Respiratory note: PATIENT FOUND ON 3LPM (32%) NASAL CANNULA AND BEING HYPEROXYGENATED. SHE WAS DECREASED TO 1LPM (24%) AT THIS TIME 3LPM IS NO NEEDED OR INDICATED. SPO2 MAINTAINED AT 98% ON 1LPM.
[2019-08-24] MEDS: ENOXAPARIN SOD 60 MG/0.6 ML SYRINGE SC SCH (12:38)
--- NOTE | 2019-08-24 12:40 | NUR ---
WOUND CARE NOTE: IN TO SEE PATIENT AT THIS TIME PER WOUND CARE CONSULT REQUEST. PATIENT IS NOTED TO HAVE AN INTERTRIGINOUS RASH TO THE UPPER MEDIAL THIGH, PERINEUM. SKIN IS BRIGHT RED, MOIST. ADVISED BEDSIDE NURSE TO APPLY ANTIFUNGAL CLEAR BARRIER CREAM TO THE AREA BID/PRN. SKIN/WOUND CARE PLAN UPDATED. WOUND CARE TEAM WILL CONTINUE TO MONITOR. Addendum: 08/24/19 at 1736 by Madyson Simon RN Amended: Links added.
[2019-08-24] MEDS: FUROSEMIDE 100 MG/10ML VIAL IV SCH (12:58)
[2019-08-24 13:00] VITALS: BP 115/57
[2019-08-24] MEDS: CARVEDILOL 3.125 MG TAB PO SCH ×2 (13:01→21:38)
[2019-08-24] MEDS: LISINOPRIL 5 MG TAB PO SCH (13:03)
[2019-08-24] MEDS: FAMOTIDINE 20 MG TAB PO SCH (13:11)
--- NOTE | 2019-08-24 13:26 | NUR ---
zoysn ORDER FOR [facility] WAS DISCONTINUED AT 1322, ROSALINE PONCE PULLED THE MEDICATION AND DID NOT ADMINISTRATE MEDICATION
--- NOTE | 2019-08-24 16:00 | NUR ---
PATIENT POSITION PATIENT PATIENT SUPINE AND BED HOB 30.
[2019-08-24 17:00] VITALS: BP 103/53
--- NOTE | 2019-08-24 19:30 | NUR ---
Respiratory note: PT SEEN FOR SCHEDULED MED NEB TX AT 1930. TX HELD AT THIS TIME DUE TO PT BEING FITTED FOR THE [employer] VEST AND BEING EDUCATED ABOUT THE VEST BY THE [employer] EMPLOYEE. PT DISPLAYING NO SIGNS OF DISTRESS AT THIS TIME. WILL CONT. TO TREAT ORDERED. HR 89 RR 16 99% ON 1L NASAL CANNULA.
--- NOTE | 2019-08-24 19:30 | NUR ---
Opening Shift Note Assumed care of patient, awake and alert. No S/S of distress/SOB or pain. Patient currently eating with HOB>45. Instructed on POC and to callfor assist PRN, will continue to monitor for changes Q1hr and PRN.
--- NOTE | 2019-08-24 20:00 | NUR ---
Krys from [employer]t notified me that the patient was not able to press the button on the life vest. Will notified to day shift nurse if Doctor wants the vest on or off. Currently the life vest is off.
[2019-08-24] MEDS: APIXABAN 5 MG TAB PO SCH (21:38)
[2019-08-24] MEDS: ATORVASTATIN 20 MG TAB PO SCH (21:38)
[2019-08-24 22:00] VITALS: BP 119/86
[2019-08-25] MEDS: IPRATROPIUM BROM 0.5 MG/2.5ML INH SOL NEB SCH ×3 (00:44→11:54)
[2019-08-25] MEDS: ALBUTEROL SULF 2.5 MG/0.5ML(0.5%) NEB SOLN NEB SCH ×3 (00:44→11:54)
[2019-08-25 05:00] VITALS: BP 124/76
--- NOTE | 2019-08-25 05:00 | NUR ---
Wound care done. patient tolerated well.
[2019-08-25] MEDS: ACCU-CHEK COMFORT CURVE STRIP VI SCH ×2 (05:42→12:00)
[2019-08-25] MEDS: InsuLIN REG 1unit/0.01ml Soln (100units/ml) SC SCH ×2 (05:42→12:00)
[2019-08-25 09:00] VITALS: BP 120/88
[2019-08-25] MEDS ORDERED: levoFLOXacin 500 MG TAB PO SCH (10:00)
[2019-08-25] MEDS: LISINOPRIL 5 MG TAB PO SCH (10:45)
[2019-08-25] MEDS: APIXABAN 5 MG TAB PO SCH (10:45)
[2019-08-25] MEDS: CARVEDILOL 3.125 MG TAB PO SCH (10:45)
[2019-08-25] MEDS: FAMOTIDINE 20 MG TAB PO SCH (10:45)
[2019-08-25] MEDS: FUROSEMIDE 100 MG/10ML VIAL IV SCH (11:18)
[2019-08-25 12:00] VITALS: BP 150/88
--- NOTE | 2019-08-25 12:44 | NUR ---
NUTRITION FOLLOWUP + CONSULT NOTES Pt wt is 70.7 kg today Pt is non-sedated, extubated, aphasic. Pt appetite is still poor aeb 25% x1 PO intake in the last 2 days. Pt with no noted distress per RN doc. Will continue to monitor and followup prn. ADDITIONAL RECOMMENDATIONS: Continue to monitor pt PO intake and provide feeding assistance to increase Po intake to goal of at least 75% as tolerated. If pt appetite remains <50% of meals eaten, consider supplemental EN nutrition support as noted below. Will continue to monitor and followup prn Est. Energy Needs: 1517-0190 kcal (20-22 kcal/kg BW). Est. Protein Needs: 64-80 gms/day (1.2-1.5 gms/kg Adj.BW). Will continue to monitor pertinent labs and reassess nutrient need prn LABS: GLUC 111 H, Cl 108 H, ALB 2.6 L Tot Pro WNL GI: No BM noted since 08/22/19, incontinent, per RN doc. BS: 10, high risk, intertrigo. Please refer to wound assessment report for full details PES: Problem 1) Altered nutrition related lab values r/t current medical condition aeb hypokalemia, hypocalcemia, hypoproteinemia 2) Obese, Class I r/t excessive energy intake prior to admission aeb BMI 33.1 kg/m2 and 169%IBW 3) Inadequate energy intake r/t current energy needs aeb NPO, intubated status Comments Will continue to monitor NPO status, skin status, pertinent labs and weight trend. F/u in 2 to 3 days. Recommendations: 1) If still NPO in 48 hours, and with improved potassium levels, consider to EN support of Glucerna 1.2 Anthony @ 55 ml/hr as tolerated when medically appropriate. (RESOLVED) 2) Advance gradually to oral CCHO diet when medically appropriate. (PARTIALLY RESOLVED, UNDER EVAL) 3) Continue current plan of care.
--- NOTE | 2019-08-25 14:30 | NUR ---
re-assessment Per ss consult DC planning. Per Vlad he will call and have his father mushroom picker patient around 5pm. I have left a message for ROSALINE Nicholson to call me once off lunch so I can inform her of family mushroom picker. I also informed Vlad that patient has home health set up. Addendum: 08/25/19 at 1432 by Dasha Wong Amended: Links added.
[2019-08-25 16:48] VITALS: BP 150/88
[2019-08-25 17:00] VITALS: BP 127/84
--- NOTE | 2019-08-25 18:12 | NUR ---
PATIENT DISCHARGED Discharge instructions given as ordered. Encourage to follow up with PMD as instructed. All questions and concerns addressed. Patient verbalized understanding. Medication reconciliation form completed and copy given to patient.. IV removed with catheter intact, pressure dressing applied, medellin catheter removed. Telemetry unit returned to ICU. Patient taken to vehicle via wheelchair with all personal belongings, accompanied by staff and family member. No distress noted at time of departure. ZOLE defibilator was at bedside and not on patient. Life vest was placed in patients spouse trunk upon discharge.
== END 2019-08-25 18:12 | disposition home or self-care (01) | DRG 720 ==
LOC: ER 09:54 → OVERFLOW 09:55 → ICU WEST 14:48 → DOU IN ICU 08-21 17:31 → TELE-WESTW 08-22 12:41
PROVIDERS: ADMIT Internal Medicine; ATTEND Internal Medicine
PROC: 5A1955Z Respiratory Ventilation, Greater than 96 Consecutive Hours (ICD-10-PCS; principal; 2019-08-14)
PROC: 0BH17EZ Insertion of Endotracheal Airway into Trachea, Via Natural or Artificial Opening (ICD-10-PCS; 2019-08-14)
PROC: 02HV33Z Insertion of Infusion Device into Superior Vena Cava, Percutaneous Approach (ICD-10-PCS; 2019-08-14)
DX: A41.9 Sepsis, unspecified organism (principal); N17.0 Acute kidney failure with tubular necrosis; J96.01 Acute respiratory failure with hypoxia; R65.21 Severe sepsis with septic shock; E44.0 Moderate protein-calorie malnutrition; I50.23 Acute on chronic systolic (congestive) heart failure; D68.69 Other thrombophilia; J18.9 Pneumonia, unspecified organism; E11.22 Type 2 diabetes mellitus with diabetic chronic kidney disease; E87.2 Acidosis; J44.1 Chronic obstructive pulmonary disease with (acute) exacerbation; E87.6 Hypokalemia; I48.92 Unspecified atrial flutter; E78.5 Hyperlipidemia, unspecified; I25.10 Atherosclerotic heart disease of native coronary artery without angina pectoris; N39.0 Urinary tract infection, site not specified; B96.89 Other specified bacterial agents as the cause of diseases classified elsewhere; I13.0 Hypertensive heart and chronic kidney disease with heart failure and stage 1 through stage 4 chronic kidney disease, or unspecified chronic kidney disease; N18.3 Chronic kidney disease, stage 3 (moderate); E03.9 Hypothyroidism, unspecified; E66.01 Morbid (severe) obesity due to excess calories; I27.20 Pulmonary hypertension, unspecified; F32.9 Major depressive disorder, single episode, unspecified; F41.9 Anxiety disorder, unspecified; I42.9 Cardiomyopathy, unspecified; I69.354 Hemiplegia and hemiparesis following cerebral infarction affecting left non-dominant side; Z95.2 Presence of prosthetic heart valve; Z95.1 Presence of aortocoronary bypass graft; Z78.9 Other specified health status; Z79.84 Long term (current) use of oral hypoglycemic drugs; Z79.899 Other long term (current) drug therapy; Z90.49 Acquired absence of other specified parts of digestive tract; Z90.710 Acquired absence of both cervix and uterus; Z98.51 Tubal ligation status; Z68.30 Body mass index [BMI] 30.0-30.9, adult
CPT/HCPCS: 31500; 36415; 36556; 36600; 71045; 80048; 80053; 80307; 82550; 82805; 82962; 83036; 83605; 83735; 83880; 84100; 84132; 84443; 84484; 85025; 85379; 85610; 85730; 87040; 87070; 87081; 87086; 87088; 87186; 87205; 87501; 87804; 87807; 87880; 92610; 93005; 93306; 94002; 94003; 94640; 96365; 96366; 97163; 99291; G0378; J0153; J0330; J1815; J1956; J2001; J2250; J2543; J2704; J3480; J3490; J7060